=== PATIENT | female | born 1940 | race Caucasian/White ===

== ENCOUNTER 2024-07-07 10:05 | Observation (INO) ==
[2024-07-07 11:32] LABS: Appearance Urine Clear (Clear); Bacteria Urine Automated None Seen (None Seen); Bilirubin Urine Negative (Negative); Blood Urine Negative (Negative); Cast Urine Automated 0-2 /lpf (0-2); Color Urine Yellow; Glucose Urine UA Negative (Negative); Ketones Urine Negative (Negative); Leukocyte Esterase Urine 2+ (Negative); Nitrite Urine Negative (Negative); Protein Urine Negative (Negative); RBC Urine Automated 0-2 /hpf (0-2); Urobilinogen Urine Negative (Negative)
[2024-07-07 11:34] LABS: Basophils # (auto) 0.03 K/uL (0.00-0.20); Basophils % (auto) 0.4 %; Eosinophils # (auto) 0.15 K/uL (0.00-0.50); Eosinophils % (auto) 2.2 %; Hematocrit (blood only) 37.8 % (37.0-47.0); Hemoglobin 12.5 g/dl (12.0-16.0); Immature Granulocytes # (auto) 0.02 K/uL (0.01-0.20); Immature Granulocytes % (auto) 0.3 %; Lymphocytes # (auto) 0.89 K/uL (1.20-3.40); Lymphocytes % (auto) 13.1 %; Mean Corpuscular Hemoglobin 29.6 pg (25.0-34.0); Mean Corpuscular Hgb Conc 33.1 g/dL (32.0-36.0); Mean Corpuscular Volume 89.6 fL (80.0-100.0); Mean Platelet Volume 9.9 fL (9.4-12.4); Monocytes # (auto) 0.55 K/uL (0.11-0.59); Monocytes % (auto) 8.1 %; Neutrophils # (auto) 5.15 K/uL (1.40-6.50); Neutrophils % (auto) 75.9 %; Platelet Count 148 K/uL (130-400); RDW Coefficient of Variation 13.9 % (11.5-14.5); RDW Standard Deviation 45.2 fL (36.4-46.3); Red Blood Count 4.22 M/uL (4.20-5.40); White Blood Count 6.79 K/ul (4.8-10.8)
[2024-07-07 11:49] LABS: Alanine Aminotransferase 11 U/L (7-52); Albumin Globulin Ratio 1.4 (0.9-2); Alkaline Phosphatase 81 U/L (34-104); Anion Gap 6 (3-11); Aspartate Aminotransferase 19 U/L (13-39); BUN Creatinine Ratio 18.6 (10-20); Bilirubin,Total 1.1 mg/dl (0.2-1.0); Blood Urea Nitrogen 18 mg/dl (6-23); Calcium 9.5 mg/dl (8.6-10.3); Carbon Dioxide 34 mmol/L (21-32); Chloride 99 mmol/L (98-107); Globulin 2.9 gm/dl (2.5-4.0); Glucose 100 mg/dl (70-99(Fasting)); Potassium 4.2 mmol/L (3.5-5.1); Sodium 139 mmol/L (136-145); Total Protein 6.9 gm/dl (6.0-8.3)
[2024-07-07] MEDS: ACETAMINOPHEN 1,000 MG/100 ML VIAL IV STA (12:00)
--- NOTE | 2024-07-07 13:04 | Emergency Department Note ---
Impression & Plan Back pain, Shingles ED Provider Note NAME: BRANDEN YADAV AGE: 83 SEX: F : 1940 ARRIVES VIA: Ambulance INFORMANT: Patient, the patient's family members ED PROVIDER(S): Gonzales Knox DO CHIEF COMPLAINT: Back pain HPI: The patient is an 83-year-old female who presented to the emergency department for evaluation of back pain. The patient notes back pain that began early this morning. She denies having any trauma. She states the pain does go down the left leg. It is worse with ambulation as well as movement. Patient denies having any fever. She denies having any chest pain. She arrived via ambulance and was taken to triage. ROS: See above HPI for pertinent positives & negatives. A total of 10 systems reviewed and were otherwise negative. PAST MEDICAL HISTORY: See Below PAST SURGICAL HISTORY: See Below FAMILY HISTORY: See Below SOCIAL HISTORY: See Below HOME MEDICATIONS: See Below ALLERGIES: See Below VITALS: See Below PHYSICAL EXAMINATION: GENERAL: Patient is awake alert in no acute distress patient is resting comfortably and showing no signs of anxiety EYES: The conjunctivae are clear. The pupils are round and reactive. EARS, NOSE, MOUTH AND THROAT: The nose is without any evidence of any deformity. NECK: The neck is nontender and supple. RESPIRATORY: Normal respiratory effort is noted there is no evidence of wheezing rhonchi or rales CARDIOVASCULAR: Irregular heart sounds were noted to auscultation. There is no definite murmur GASTROINTESTINAL: The abdomen is soft. Abdomen is nontender. BACK: Midline tenderness was noted in the upper lumbar spine. There is no step- off. Range of motion appears intact but painful. MUSCULOSKELETAL/EXTREMITIES: There is no evidence of gross deformity full range of motion is noted in the hips and shoulders. SKIN: There is no obvious evidence of any rash. There are no petechiae, pallor or cyanosis noted. NEUROLOGIC: Patient is awake alert and oriented x3. The patient was able to hold each leg off the bed for greater than 5 seconds. MEDICAL DECISION MAKING: The patient is an 83-year-old female who presented to the emergency department for an evaluation of back pain. The patient had a rather acute onset of back pain over the last 24 hours. She was having severe pain and 911 was called. The patient arrived via ambulance. I discussed the patient's laboratory and radiographic studies with her. She was treated with pain medication in the emergency department. No obvious cause for the patient's pain was found on CT of the abdomen pelvis or CT of the chest. Because of her ongoing pain I discussed her condition with the on-call [facility] hospitalist. They have agreed to evaluate the patient in the emergency department for further management and disposition Triage Nursing notes reviewed. Prior medical records reviewed Vital Signs: reviewed and remarkable for no significant abnormalities Differential diagnosis: Musculoskeletal, disc herniation, fracture, metastatic disease, cord compression, discitis, sciatica, cauda equina, infection, aortic disease, renal colic, gastrointestinal, as well as other pathologies. ER treatment provided: See below Diagnostics interpreted by me: ECG: EKG was obtained in the emergency department. My interpretation is atrial fibrillation at 60 bpm. Left bundle-branch block pattern was noted. No previous tracings available Cardiac Monitoring: An order was placed for continuous cardiac monitoring. The monitor shows a rate of 66 bpm with atrial fibrillation. Laboratory studies: As stated above and show below. Imaging studies: See below. Radiographic imaging was reviewed by myself Consultation(s): I discussed this case with Dr. Smalls who is on-call for the [facility] hospitalist group. Past Med/Surg History Problem List (Updated 07/07/24 @ 19:44 by Gonzales Knox DO) Shingles (Acute) Back pain (Acute) Ambulatory dysfunction Acute thoracic back pain Right rotator cuff tendinitis Left trigger finger Right lower quadrant abdominal pain Achilles tendinitis, left leg Posterior tibial tendinitis Arthritis of knee, left Effusion, left knee Chondrocalcinosis Bilateral primary osteoarthritis of knee Rotator cuff syndrome of left shoulder S/P coronary artery stent placement History of aortic valve replacement TAVR procedure 04/13/2019 Lumbar stenosis with neurogenic claudication H/O transesophageal echocardiography (LELIA) for monitoring (Chronic) History of multiple strokes (Chronic) 04/29 and 05/31 History of loop recorder (Acute) 05/27/2018 H/O right heart catheterization (Chronic) not sure if right or left - thought both sides were looked at - 04/29 Lumbar facet joint syndrome (Chronic) History of coronary artery stent placement (Chronic) Hypertension (Chronic) Diabetes (Chronic) Social History Smoking Status: Never smoker Hx Alcohol Use: No Hx Substance Use: No Preferred Language: French Communication Ability: Effective Visual Impairment: No Limitations Hearing Ability: Normal 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 Beliefs That Will Affect Care: None marital status: Current Living Situation: Spouse current occupational status: retired Feels Safe at Home: Yes Allergies Allergies Allergy/AdvReac Type Severity Reaction Status Date / Time No Known Allergies Allergy Verified 07/07/24 17:56 Home Meds Home Medications Medication Instructions Recorded Confirmed multivitamin (Daily Multi-Vitamin 1 tab PO DAILY 01/31/18 07/07/24 tablet) temazepam 30 mg capsule (Restoril) 30 mg PO HS 01/31/18 07/07/24 rosuvastatin 10 mg tablet 10 mg PO HS 02/28/23 07/07/24 atenolol 50 mg tablet 50 mg PO BID 12/05/23 07/07/24 doxazosin 1 mg tablet 1 mg PO HS 12/05/23 07/07/24 rivaroxaban 20 mg tablet (Xarelto) 20 mg PO HS 12/05/23 07/07/24 furosemide 20 mg tablet 20 mg PO QAM 07/06/24 07/07/24 isosorbide mononitrate 30 mg 30 mg PO DAILY 07/06/24 07/07/24 tablet,extended release 24 hr losartan 100 mg tablet 100 mg PO DAILY 07/06/24 07/07/24 nystatin-triamcinolone 100,000 1 applic topical DAILY PRN 07/06/24 07/07/24 unit/gram-0.1 % topical ointment Irritation tramadol 50 mg tablet 50 mg PO BID PRN pain 07/07/24 07/07/24 Previous Rx's Medication Instructions Recorded gabapentin 300 mg capsule 300 mg PO TID #180 caps 01/23/24 Results & Data (ED) Vital Signs Vital Signs - 24 hr 07/07/24 10:30 07/07/24 13:03 07/07/24 13:28 Temperature 36.5 C Temperature Source Oral Pulse Rate 76 62 Pulse Rate [Apical] 81 Pulse Rhythm [Apical] Regular Pulse Strength [Apical] Normal Respiratory Rate 18 24 Respiratory Effort / Characteristics Non-Labored Non-Labored Spontaneous Respiratory Depth Normal Normal Respiratory Pattern Regular Regular Blood Pressure 160/90 H Blood Pressure [Right Arm] 154/103 H Blood Pressure Mean 113 Blood Pressure Mean [Right Arm] 120 Blood Pressure Position [Right Arm] Pulse Oximetry 96 96 Oxygen Delivery Method Room Air Room Air Sepsis Recent Fever Within 48 Hours No Sepsis New/Unexplained Change in Mental Status N/A Sepsis Action Taken by Nursing No Action Required 07/07/24 13:43 07/07/24 15:00 07/07/24 16:00 Temperature Temperature Source Pulse Rate Pulse Rate [Apical] 70 69 62 Pulse Rhythm [Apical] Regular Pulse Strength [Apical] Normal Respiratory Rate 20 17 18 Respiratory Effort / Characteristics Non-Labored Spontaneous Non-Labored Spontaneous Respiratory Depth Normal Normal Respiratory Pattern Regular Regular Blood Pressure Blood Pressure [Right Arm] 120/74 137/79 147/76 H Blood Pressure Mean Blood Pressure Mean [Right Arm] 89 98 99 Blood Pressure Position [Right Arm] Lying Semi-fowlers Semi-fowlers Pulse Oximetry 96 98 96 Oxygen Delivery Method Room Air Room Air Sepsis Recent Fever Within 48 Hours Sepsis New/Unexplained Change in Mental Status Sepsis Action Taken by Nursing 07/07/24 17:05 07/07/24 17:30 07/07/24 18:23 Temperature Temperature Source Pulse Rate 64 Pulse Rate [Apical] 62 66 Pulse Rhythm [Apical] Pulse Strength [Apical] Respiratory Rate 18 19 Respiratory Effort / Characteristics Respiratory Depth Respiratory Pattern Blood Pressure Blood Pressure [Right Arm] 146/85 H 120/84 Blood Pressure Mean Blood Pressure Mean [Right Arm] 105 96 Blood Pressure Position [Right Arm] Semi-fowlers Pulse Oximetry 98 92 Oxygen Delivery Method Room Air Room Air Sepsis Recent Fever Within 48 Hours Sepsis New/Unexplained Change in Mental Status Sepsis Action Taken by Half-Way Medications Current Medication List: was personally reviewed by me Laboratory Data Attestation: I reviewed the patient's lab results. 07/07/24 11:12 07/07/24 11:12 Lab Results 07/07/24 07/07/24 07/07/24 Range/Units 11:12 11:13 14:21 WBC 6.79 (4.8-10.8) K/ul RBC 4.22 (4.20-5.40) M/uL Hgb 12.5 (12.0-16.0) g/dl Hct 37.8 (37.0-47.0) % MCV 89.6 (80.0-100.0) fL MCH 29.6 (25.0-34.0) pg MCHC 33.1 (32.0-36.0) g/dL RDW Std Deviation 45.2 (36.4-46.3) fL RDW Coeff of [place] 13.9 (11.5-14.5) % Plt Count 148 (130-400) K/uL MPV 9.9 (9.4-12.4) fL Immature Gran % (Auto) 0.3 % Neut % (Auto) 75.9 % Lymph % (Auto) 13.1 % [place] % (Auto) 8.1 % Eos % (Auto) 2.2 % Baso % (Auto) 0.4 % Neut # (Auto) 5.15 (1.40-6.50) K/uL Lymph # (Auto) 0.89 L (1.20-3.40) K/uL [place] # (Auto) 0.55 (0.11-0.59) K/uL Eos # (Auto) 0.15 (0.00-0.50) K/uL Baso # (Auto) 0.03 (0.00-0.20) K/uL Immature Gran # (Auto) 0.02 (0.01-0.20) K/uL Sodium 139 (136-145) mmol/L Potassium 4.2 (3.5-5.1) mmol/L Chloride 99 (98-107) mmol/L Carbon Dioxide 34 H (21-32) mmol/L Anion Gap 6 (3-11) BUN 18 (6-23) mg/dl Creatinine 0.97 (0.6-1.2) mg/dl Est Cr Clr Drug Dosing Not Reportable eGFR 58.34 BUN/Creatinine Ratio 18.6 (10-20) Glucose 100 H (70-99(Fasting)) mg/dl Calcium 9.5 (8.6-10.3) mg/dl Total Bilirubin 1.1 H (0.2-1.0) mg/dl AST 19 (13-39) U/L ALT 11 (7-52) U/L Alkaline Phosphatase 81 (34-104) U/L Troponin I High Sens 9.7 (0-14) pg/ml Total Protein 6.9 (6.0-8.3) gm/dl Albumin 4.0 (3.4-5.0) gm/dl Globulin 2.9 (2.5-4.0) gm/dl Albumin/Globulin Ratio 1.4 (0.9-2) Urine Color Yellow Urine Appearance Clear (Clear) Urine pH 6.0 (4.5-7.5) Ur Specific [place] 1.010 (1.000-1.030) Urine Protein Negative (Negative) Urine Glucose (UA) Negative (Negative) Urine Ketones Negative (Negative) Urine Blood Negative (Negative) Urine Nitrite Negative (Negative) Urine Bilirubin Negative (Negative) Urine Urobilinogen Negative (Negative) Ur Leukocyte Esterase 2+ H (Negative) Urine WBC (Auto) 6-10 H (0-5) /hpf Urine RBC (Auto) 0-2 (0-2) /hpf U Hyaline Cast (Auto) 0-2 (0-2) /lpf U Epithel Cells (Auto) 3-5 H (0-2) /hpf Urine Bacteria (Auto) None Seen (None Seen) Administered Medications Discontinued Medications Hydromorphone HCl (Hydromorphone Inj 0.5 Mg/0.5 Ml Syr) 0.5 mg IV NOW STA Stop: 07/07/24 14:03 Last Admin: 07/07/24 14:05 Dose: 0.5 mg Documented By: SRL Acetaminophen (Ofirmev) 1,000 mg in 100 mls @ 400 mls/hr IV NOW STA Stop: 07/07/24 12:05 Last Infusion: 07/07/24 12:24 Dose: Infused Documented By: NRPamella Admin: 07/07/24 12:00 Dose: 400 mls/hr Documented By: ALIREZA Ioversol (Optiray 320 100ml) 93 ml IV ONCE ONE Stop: 07/07/24 13:23 Last Admin: 07/07/24 13:22 Dose: 93 ml Documented By: ZULMA Ioversol (Optiray 320 125ml) 119 ml IV ONCE ONE Stop: 07/07/24 15:39 Last Admin: 07/07/24 15:39 Dose: 119 ml Documented By: SHAHRIAR Lidocaine (Lidocaine 5% 1 Patch) 1 patch TD NOW STA Stop: 07/07/24 17:29 Last Admin: 07/07/24 18:19 Dose: 1 patch Documented By: OTILIO Morphine Sulfate (Morphine Sulfate 4 Mg/Ml 1 Ml Carp\Vial) 4 mg IV NOW STA Stop: 07/07/24 12:59 Last Admin: 07/07/24 13:10 Dose: 4 mg Documented By: RAY Ondansetron HCl (Ondansetron Inj 2 Mg/Ml 2 Ml Vial) 4 mg IV NOW STA Stop: 07/07/24 12:59 Last Admin: 07/07/24 13:10 Dose: 4 mg Documented By: RAY Imaging Data Attestation: I personally reviewed and interpreted this imaging study as follows: My Impression: CT of the abdomen and pelvis was obtained in the emergency department. My interpretation is no free air or signs of bowel obstruction, final report below. CT of the chest was obtained in the emergency department. My interpretation is no definite infiltrate or free air, final report below. Radiologist's Impression: Abdomen/Pelvis CT 07/07/24 12:[address] WITH IV CONTRAST CT DOSE: 1787.29 mGy.cm HISTORY: Acute left-sided abdominal pain left sided pain TECHNIQUE: Multiaxial CT images of the abdomen and pelvis were performed following the IV administration of 93 cc of Optiray, A dose lowering technique was utilized adhering to the principles of ALARA. COMPARISON STUDY: 02/20/2022 FINDINGS: Cardiomegaly with unchanged small pericardial effusion. Aortic endograft. Coronary artery calcifications. Clear lung bases. No pneumatosis or pneumoperitoneum. Unremarkable spleen, pancreas, gallbladder, adrenal glands and liver. Cortical thinning of the kidneys with bilateral perinephric stranding. 2.7 cm cyst of the superior pole right kidney. Unremarkable urinary bladder. Heterogeneous uterus with calcified fibroid. Atherosclerosis of the aorta without aneurysm. No lymphadenopathy. Small hiatal hernia. 4.8 cm duodenal diverticulum. Pelvic floor relaxation. Colonic diverticulosis without acute diverticulitis. Nonvisualization of the appendix. Tiny fat filled umbilical hernia. Unremarkable soft tissues. L1 vertebral body hemangioma. No acute fracture. IMPRESSION: 1. No acute intra-abdominal or intrapelvic abnormality. 2. Colonic diverticulosis without acute diverticulitis. 3. Cardiomegaly with unchanged small pericardial effusion. 4. Small hiatal hernia. ACT 112: Negative or not required by law. The above report was generated using voice recognition software. It may contain grammatical, syntax or spelling errors. Electronically signed by: Pavan Lopez M.D. 07/07/2024 1:57 PM Chest X-Ray 07/07/24 12:59 XR chest 1V portable CLINICAL HISTORY: edema COMPARISON STUDY: None FINDINGS: There is moderate cardiomegaly without pulmonary vascular congestion. No effusion, consolidation, or pneumothorax. IMPRESSION: No acute findings. ACT 112: Negative or not required by law. Electronically signed by: Brian Evans M.D. 07/07/2024 1:28 PM Chest CTA 07/07/24 14:38 CT angio chest PE protocol CT DOSE: 887.57 mGy.cm HISTORY: PE. TECHNIQUE: Multiple CTA images of the chest were obtained after the intravenous administration of 120 ml Optiray. Coronal and sagittal MIPS were obtained from the axial data set and were submitted for review. All measurements were obtained according to NASCET criteria. A dose lowering technique was utilized adhering to the principles of ALARA. COMPARISON STUDY: None FINDINGS: There is no pulmonary consolidation, pleural effusion, or pneumothorax. No significant pulmonary nodule. No enlarged adenopathy. There is a trace pericardial effusion. There is prior aortic valve repair. No pulmonary embolism. There are diffuse thoracic spine degenerative changes. IMPRESSION: No pulmonary embolism seen. ACT 112: Negative or not required by law. The above report was generated using voice recognition software. It may contain grammatical, syntax or spelling errors. Electronically signed by: Brian Evans M.D. 07/07/2024 3:[address] 07/07/24 17:30 Clinical history: Back pain Technique: Axial computed tomography images were obtained of the thoracic spine after the administration of intravenous contrast. Sagittal and coronal reconstructions were obtained Comparison is made to the MRI of the lumbar spine dated 06/20/2023 Findings: There is multilevel Schmorl's node formation. There are mild compression fractures of the T5, T6, T7, T8, and T9 vertebral bodies, with loss of up to 15% of the vertebral body height. There is no retropulsion of bone into the spinal canal. No definite acute fracture is identified. There is mild scoliosis. No listhesis is seen. Again seen is a hemangioma in the L1 vertebral body. There is no definite sign of osteomyelitis At T1-2 and T2-3, no pathology is seen At T3-4 and T4-5, there are mild anterior disc bulges without spinal stenosis. The neural foramen are patent At T5-6, there is mild spinal stenosis due to a disc bulge and a right paracentral disc herniation. The neural foramen appear patent At T6-7, there is a mild disc bulge without spinal stenosis. The neural foramen appear patent At T7-8, there is mild spinal stenosis due to a disc bulge and a central disc protrusion. The neural foramen appear patent At T8-9, there is a disc bulge without spinal stenosis. The neural foramen appear patent At T9-10, T10-11, and T11-12, there are predominantly anterior disc bulges without spinal stenosis. The neural foramen appear patent There is a 3 mm right upper lobe nodule. There is a small hiatal hernia Impression: 1. Mild compression fractures of T5-T9, likely old but of indeterminate age 2. Mild spinal stenosis at T5-6 and T7-8 3. Small right upper lobe nodule, likely benign but indeterminate in nature. A follow-up chest CT could be obtained in 6 months 4. Small hiatal hernia Electronically signed by Tian Valadez 07-07-2024 6:34 PM Discharge Plan Visit Data Chief Complaint: Back Injury/Pain Stated Complaint: BACK PAIN ED Provider: Gonzales Knox Discharge Problem: Back pain, Shingles Patient Disposition: Being Evaluated by Hospitalist Forms Stand Alone Forms: My [facility] Prescriptions Prescriptions: No Action multivitamin [Daily Multi-Vitamin] tablet 1 tab PO DAILY Rx Instructions: Unable to verify OTC meds at this date/time. temazepam [Restoril] 30 mg capsule 30 mg PO HS rosuvastatin 10 mg tablet 10 mg PO HS atenolol 50 mg tablet 50 mg PO BID doxazosin 1 mg tablet 1 mg PO HS Xarelto 20 mg tablet 20 mg PO HS isosorbide mononitrate 30 mg tablet extended release 24 hr 30 mg PO DAILY gabapentin 300 mg capsule 300 mg PO TID Qty: 180 3RF furosemide 20 mg tablet 20 mg PO QAM nystatin-triamcinolone 100,000-0.1 unit/gram-% ointment 1 applic topical DAILY PRN (Reason: Irritation) losartan 100 mg tablet 100 mg PO DAILY tramadol 50 mg tablet 50 mg PO BID PRN (Reason: pain) Referrals Referrals: Nuris Small MD [Primary Care Provider] - Discharge Problem: Back pain Qualifiers: Back pain location: thoracic back pain Chronicity: acute Back pain laterality: midline Qualified Code(s): M54.6 - Pain in thoracic spine
[2024-07-07] MEDS: MoRPHine SULFATE 4 MG/ML 1 ML CARP\\VIAL IV STA (13:10)
[2024-07-07] MEDS: ONDANSETRON INJ 2 MG/ML 2 ML VIAL IV STA (13:10)
[2024-07-07] MEDS: OPTIRAY 320 100ml IV ONE (13:22)
--- NOTE | 2024-07-07 13:29 | XRay Report ---
XR chest 1V portable CLINICAL HISTORY: edema COMPARISON STUDY: None FINDINGS: There is moderate cardiomegaly without pulmonary vascular congestion. No effusion, consolid ation, or pneumothorax. IMPRESSION: No acute findings. ACT 112: Negative or not required by law. Electronically signed by: Brian Evans M.D. 07/07/2024 1:28 PM
--- NOTE | 2024-07-07 13:59 | CT Scan Report ---
ABDOMEN AND PELVIS CT WITH IV CONTRAST CT DOSE: 1787.29 mGy.cm HISTORY: Acute left-sided abdominal pain left sided pain TECHNIQUE: Multiaxial CT images of the abdomen and pelvis were performed following the IV administrat ion of 93 cc of Optiray, A dose lowering technique was utilized adhering to the principles of ALARA. COMPARISON STUDY: 02/20/2022 FINDINGS: Cardiomegaly with unchanged small pericardial effusion. Aortic endograft. Coronary artery c alcifications. Clear lung bases. No pneumatosis or pneumoperitoneum. Unremarkable spleen, pancreas, gallbladder, adrenal glands and liver. Cortical thinning of the kidney s with bilateral perinephric stranding. 2.7 cm cyst of the superior pole right kidney. Unremarkable u rinary bladder. Heterogeneous uterus with calcified fibroid. Atherosclerosis of the aorta without ane urysm. No lymphadenopathy. Small hiatal hernia. 4.8 cm duodenal diverticulum. Pelvic floor relaxation. Colonic diverticulosis wi thout acute diverticulitis. Nonvisualization of the appendix. Tiny fat filled umbilical hernia. Unrem arkable soft tissues. L1 vertebral body hemangioma. No acute fracture. IMPRESSION: 1. No acute intra-abdominal or intrapelvic abnormality. 2. Colonic diverticulosis without acute diverticulitis. 3. Cardiomegaly with unchanged small pericardial effusion. 4. Small hiatal hernia. ACT 112: Negative or not required by law. The above report was generated using voice recognition software. It may contain grammatical, syntax o r spelling errors. Electronically signed by: Pavan Lopez M.D. 07/07/2024 1:57 PM
[2024-07-07] MEDS: HYDROmorphone INJ 0.5 MG/0.5 ML SYR IV STA (14:05)
[2024-07-07] MEDS: OPTIRAY 320 125ml IV ONE (15:39)
--- NOTE | 2024-07-07 15:47 | CT Scan Report ---
CT angio chest PE protocol CT DOSE: 887.57 mGy.cm HISTORY: PE. TECHNIQUE: Multiple CTA images of the chest were obtained after the intravenous administration of 120 ml Optiray. Coronal and sagittal MIPS were obtained from the axial data set and were submitted for review. All measurements were obtained according to NASCET criteria. A dose lowering technique was u tilized adhering to the principles of ALARA. COMPARISON STUDY: None FINDINGS: There is no pulmonary consolidation, pleural effusion, or pneumothorax. No significant pulm onary nodule. No enlarged adenopathy. There is a trace pericardial effusion. There is prior aortic va lve repair. No pulmonary embolism. There are diffuse thoracic spine degenerative changes. IMPRESSION: No pulmonary embolism seen. ACT 112: Negative or not required by law. The above report was generated using voice recognition software. It may contain grammatical, syntax o r spelling errors. Electronically signed by: Brian Evans M.D. 07/07/2024 3:44 PM
--- NOTE | 2024-07-07 16:16 | Electrocardiogram Report ---
Test Reason : Blood Pressure : */* mmHG Vent. Rate : 60 BPM Atrial Rate : * BPM P-R Int : * ms QRS Dur : 126 ms QT Int : 426 ms P-R-T Axes : * -11 113 degrees QTcB Int : 426 ms Atrial fibrillation Left bundle branch block Abnormal ECG No previous ECGs available Confirmed by Gonzales Crouch ([id number]) on 07/07/2024 4:15:46 PM Referred By: Confirmed By: Gonzales Crouch
--- NOTE | 2024-07-07 16:41 | History & Physical Report ---
Date of Service July 07, 2024 Assessment & Plan (1) Acute thoracic back pain: (2) Ambulatory dysfunction: Plan Shannon is an 83-year-old female with PMH of diabetes, HTN, CAD s/p stent placement, aortic valve replacement, spinal stenosis, and multiple strokes. She presented on 07/07 for left middle back pain that began at 7:30 AM. Patient reports she felt fine when she woke up, but then developed acute onset of pain on her left upper and middle spine. She rates the pain 10/10 at worst, and characterizes it as a sharp, stabbing pain that is worse with deep breaths. She reports it is 8/10 after receiving Dilaudid in the ED. Patient does have a history of lumbar spinal stenosis, but reports this feels different as it is much higher in her spine. No recent injuries to the head, neck, or back. #Back pain No fevers; no leukocytosis; no saddle anesthesia or loss of urinary continence Chest CTA and A/P CT on arrival without acute finding; no PE Thoracic CT ordered, pending Leading DDx on admission includes MSK, and acute on chronic neuropathic pain (among other etiologies) Patient does have shingles; however, it is on her right chest wall Lidocaine patch daily Heat application PRN Continue gabapentin and tramadol PRN IV Dilaudid as needed for breakthrough pain Continuous pulse oximetry #Ambulatory dysfunction PT/OT evaluations appreciated Fall precautions #Atrial fibrillation Rate controlled Continue atenolol, Xarelto Disposition: Obs - admit to [facility] Full code Regular diet VTE PPx: On Eliquis History of Present Illness Chief Complaint: Back pain Primary Care Provider: Nuris Small MD Shannno is an 83-year-old female with PMH of diabetes, HTN, CAD s/p stent placement, aortic valve replacement, spinal stenosis, and multiple strokes. She presented on 07/07 for left middle back pain that began at 7:30 AM. Patient reports she felt fine when she woke up, but then developed acute onset of pain on her left upper and middle spine. She rates the pain 10/10 at worst, and characterizes it as a sharp, stabbing pain that is worse with deep breaths. She reports it is 8/10 after receiving Dilaudid in the ED. Patient does have a history of lumbar spinal stenosis, but reports this feels different as it is much higher in her spine. No recent injuries to the head, neck, or back. No abnormal activities. Patient takes gabapentin and tramadol for her back pain, and reports that her tramadol dosage was increased yesterday without relief. The pain has gradually gotten worse throughout the day. No saddle anesthesia or loss of urinary continence. Patient does follow-up with the pain clinic and has had multiple injections and ablations in her lower spine. Additionally, she does have a history of shingles on her right side, and was diagnosed with it 1 week ago. She is not currently vaccinated against shingles, but reports she has had it 3-4 times in the past. It should be noted that there was 1 episode this past week where she woke up in the middle the night with pain in her shins bilaterally. Patient took her regular morning medicine today; no recent changes besides increasing her tramadol dosage. Patient ambulates with a cane and walker at baseline. No history of pancreatitis. No history of heart failure to her knowledge, but she has been told that she has a "leaky" aortic valve in the past, and she has been taking Lasix daily for fluid buildup in her legs. Additionally, patient does have a history of strokes, but denies any strokelike symptoms such as slurred speech, facial droop, unilateral deficits. Patient is hypertensive at 147/76 at time admission; vitals otherwise stable. ED course: Morphine sulfate 4 mg IV Zofran 4 mg IV Hydromorphone 0.5 mg IV Acetaminophen 1000 mg IV ROS: Patient endorses feeling, off-balance, headaches, chest heaviness, YANEZ, and occasional abdominal cramping. Patient denies fever, chills, night-sweats, dizziness, lightheadedness, photophobia, neck pain/stiffness, SOB at rest, orthopnea, N/V/D, saddle anesthesia, N/T in the legs, or loss of bowel/bladder. Allergies Allergy/AdvReac Type Severity Reaction Status Date / Time No Known Allergies Allergy Verified 07/07/24 17:56 Home Medications Medication Instructions Recorded Confirmed Type multivitamin (Daily Multi-Vitamin 1 tab PO DAILY 01/31/18 07/07/24 History tablet) temazepam 30 mg capsule (Restoril) 30 mg PO HS 01/31/18 07/07/24 History rosuvastatin 10 mg tablet 10 mg PO HS 02/28/23 07/07/24 History atenolol 50 mg tablet 50 mg PO BID 12/05/23 07/07/24 History doxazosin 1 mg tablet 1 mg PO HS 12/05/23 07/07/24 History rivaroxaban 20 mg tablet (Xarelto) 20 mg PO HS 12/05/23 07/07/24 History gabapentin 300 mg capsule 300 mg PO TID #180 caps 01/23/24 07/07/24 Rx furosemide 20 mg tablet 20 mg PO QAM 07/06/24 07/07/24 History isosorbide mononitrate 30 mg 30 mg PO DAILY 07/06/24 07/07/24 History tablet,extended release 24 hr losartan 100 mg tablet 100 mg PO DAILY 07/06/24 07/07/24 History nystatin-triamcinolone 100,000 1 applic topical DAILY PRN 07/06/24 07/07/24 History unit/gram-0.1 % topical ointment Irritation tramadol 50 mg tablet 50 mg PO BID PRN pain 07/07/24 07/07/24 History Past Med/Surg History Problem List (Updated 07/07/24 @ 17:42 by ANNE HernandezC) Ambulatory dysfunction Acute thoracic back pain Right rotator cuff tendinitis Left trigger finger Right lower quadrant abdominal pain Achilles tendinitis, left leg Posterior tibial tendinitis Arthritis of knee, left Effusion, left knee Chondrocalcinosis Bilateral primary osteoarthritis of knee Rotator cuff syndrome of left shoulder S/P coronary artery stent placement History of aortic valve replacement TAVR procedure 04/13/2019 Lumbar stenosis with neurogenic claudication H/O transesophageal echocardiography (LELIA) for monitoring (Chronic) History of multiple strokes (Chronic) 04/29 and 05/31 History of loop recorder (Acute) 05/27/2018 H/O right heart catheterization (Chronic) not sure if right or left - thought both sides were looked at - 04/29 Lumbar facet joint syndrome (Chronic) History of coronary artery stent placement (Chronic) Hypertension (Chronic) Diabetes (Chronic) Social History Smoking Status: Never smoker Hx Alcohol Use: No Hx Substance Use: No Preferred Language: Angolan Communication Ability: Effective Visual Impairment: No Limitations Hearing Ability: Normal Director Of Home Economics Required: No Beliefs That Will Affect Care: None marital status: Current Living Situation: Spouse current occupational status: retired Feels Safe at Home: Yes Review of Systems Review of Systems: See HPI above Physical Exam Physical Exam: General: no acute distress; non-toxic appearing; well-nourished; cooperative; SpO2 90% on RA HEENT: normocephalic, atraumatic; no scleral icterus; PERRLA w/ EOMs intact; vision and hearing grossly intact Neck: supple; no lymphadenopathy; trachea midline; patient demonstrates ability to shrug shoulders against resistance, but this does elicit some pain on the left side; patient rotates neck bilaterally without unilateral deficits Skin: warm, dry without signs of tenting; no cyanosis; vesicular rash noted across the right chest wall CV: chest wall NTP; RRR; S1/S2 normal; no murmurs/rubs/gallops; pulses intact and symmetric at radial, DP, and PT Lungs: no acute respiratory distress; symmetrical chest wall expansion; clear breath sounds across all lung sena w/o adventitious sounds; no wheezing ABD: Soft, NTP; BS present; no rebound/guarding; no distention Spine: Upper spine NTP; left thoracic spine is tender to palpation; no rashes or vesicles appreciated MSK: no tics or fasciculations; +2 pitting edema noted in the LEs b/l, nonerythematous; 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; positive leg lift bilaterally Neuro: A&Ox3; normal mood and affect; fluent speech; no focal deficits; sensation intact and symmetric in lower extremities bilaterally Results & Data Results & Data Vital Signs (Past 12 Hours) Vital Signs Temp Pulse Pulse Resp BP BP Pulse Ox 07/07/24 16:00 62 18 147/76 H 96 07/07/24 15:00 69 17 137/79 98 07/07/24 13:43 70 20 120/74 96 07/07/24 13:28 81 24 154/103 H 96 07/07/24 13:03 62 07/07/24 10:30 36.5 C 76 18 160/90 H 96 O2 Del Method 07/07/24 16:00 07/07/24 15:00 Room Air 07/07/24 13:43 Room Air 07/07/24 13:28 Room Air 07/07/24 13:03 07/07/24 10:30 Room Air Laboratory Results Abnormal lab results 07/07/24 07/07/24 Range/Units 11:12 11:13 Lymph # (Auto) 0.89 L (1.20-3.40) K/uL Carbon Dioxide 34 H (21-32) mmol/L Glucose 100 H (70-99(Fasting)) mg/dl Total Bilirubin 1.1 H (0.2-1.0) mg/dl Ur Leukocyte Esterase 2+ H (Negative) Urine WBC (Auto) 6-10 H (0-5) /hpf U Epithel Cells (Auto) 3-5 H (0-2) /hpf Diagnostic Findings Abdomen/Pelvis CT 07/07/24 12:[address] WITH IV CONTRAST CT DOSE: 1787.29 mGy.cm HISTORY: Acute left-sided abdominal pain left sided pain TECHNIQUE: Multiaxial CT images of the abdomen and pelvis were performed following the IV administration of 93 cc of Optiray, A dose lowering technique was utilized adhering to the principles of ALARA. COMPARISON STUDY: 02/20/2022 FINDINGS: Cardiomegaly with unchanged small pericardial effusion. Aortic endograft. Coronary artery calcifications. Clear lung bases. No pneumatosis or pneumoperitoneum. Unremarkable spleen, pancreas, gallbladder, adrenal glands and liver. Cortical thinning of the kidneys with bilateral perinephric stranding. 2.7 cm cyst of the superior pole right kidney. Unremarkable urinary bladder. Heterogeneous uterus with calcified fibroid. Atherosclerosis of the aorta without aneurysm. No lymphadenopathy. Small hiatal hernia. 4.8 cm duodenal diverticulum. Pelvic floor relaxation. Colonic diverticulosis without acute diverticulitis. Nonvisualization of the appendix. Tiny fat filled umbilical hernia. Unremarkable soft tissues. L1 vertebral body hemangioma. No acute fracture. IMPRESSION: 1. No acute intra-abdominal or intrapelvic abnormality. 2. Colonic diverticulosis without acute diverticulitis. 3. Cardiomegaly with unchanged small pericardial effusion. 4. Small hiatal hernia. ACT 112: Negative or not required by law. The above report was generated using voice recognition software. It may contain grammatical, syntax or spelling errors. Electronically signed by: Pavan Lopez M.D. 07/07/2024 1:57 PM Chest X-Ray 07/07/24 12:59 XR chest 1V portable CLINICAL HISTORY: edema COMPARISON STUDY: None FINDINGS: There is moderate cardiomegaly without pulmonary vascular congestion. No effusion, consolidation, or pneumothorax. IMPRESSION: No acute findings. ACT 112: Negative or not required by law. Electronically signed by: Brian Evans M.D. 07/07/2024 1:28 PM Chest CTA 07/07/24 14:38 CT angio chest PE protocol CT DOSE: 887.57 mGy.cm HISTORY: PE. TECHNIQUE: Multiple CTA images of the chest were obtained after the intravenous administration of 120 ml Optiray. Coronal and sagittal MIPS were obtained from the axial data set and were submitted for review. All measurements were obtained according to NASCET criteria. A dose lowering technique was utilized adhering to the principles of ALARA. COMPARISON STUDY: None FINDINGS: There is no pulmonary consolidation, pleural effusion, or pneumothorax. No significant pulmonary nodule. No enlarged adenopathy. There is a trace pericardial effusion. There is prior aortic valve repair. No pulmonary embolism. There are diffuse thoracic spine degenerative changes. IMPRESSION: No pulmonary embolism seen. ACT 112: Negative or not required by law. The above report was generated using voice recognition software. It may contain grammatical, syntax or spelling errors. Electronically signed by: Brian Evans M.D. 07/07/2024 3:44 PM ECG Additional Comments: ECG revealed atrial fibrillation at 60 bpm; QTc 426; no prior EKGs for comparison Code Status & VTE Plan Code Status Full code VTE Prophylaxis Plan VTE Prophylaxis will be ordered: Yes Supervising Physician Co-Signing Physician Notes I have personally seen, evaluated and examined the patient. I have also personally discussed the management of the patient with the resident physician/LEATHA and I agree with the exam findings documented in the history and physical examination and the documented assessment and plan unless otherwise stated below. Brief Exam: In general pleasant 83-year-old female is alert oriented x 3 at the time of my exam accompanied by her and her daughter at the time of my examination. HEENT: Normocephalic atraumatic. Heart: Regular rate and rhythm. Lungs: Clear. Abdomen: Soft nontender positive bowel sounds. Extremities: Intact no clubbing cyanosis or edema. Spine-the patient does have reproducible pain with palpation in the mid lumbar regions approximately T5-T8. Worse just left of midline. Assessment/plan: As discussed above. CT of the thoracic spine was performed and is grossly abnormal. Compression fractions age-indeterminate from T5 -T9 identified. With spinal stenosis with disc bulge at the level of T5/T6. We have ordered an MRI of the thoracic spine. Of also obtained orthospine consult with Dr. Olea. We personally discussed with him and he will see the patient in the morning. Additional assessments: 1. Compression fractures age-indeterminate T5-T9. 2. Spinal stenosis levels T5-T6 with bulging disc. PG Care Time/CCT Total # of Minutes Spent Total Time Spent with Patient: Total time spent is greater than 50% in coordination of care (as documented) at patient's floor/unit and/or counseling patient: Coding [place] [address] INT INP/OBS CARE 3/75MIN Patient Type Established Medical Decision Making High Complexity Diagnoses Acute thoracic back pain M54.6 Ambulatory dysfunction R26.2
[2024-07-07] MEDS: LIDOCAINE 5% 1 PATCH TD STA (18:19)
--- NOTE | 2024-07-07 18:34 | CT Scan Report ---
Clinical history: Back pain Technique: Axial computed tomography images were obtained of the thoracic spine after the administration of intravenous contrast. Sagittal and coronal reconstructions were obtained Comparison is made to the MRI of the lumbar spine dated 06/20/2023 Findings: There is multilevel Schmorl's node formation. There are mild compression fractures of the T5, T6, T7, T8, and T9 vertebral bodies, with loss of up to 15% of the vertebral body height. There is no retropulsion of bone into the spinal canal. No definite acute fracture is identified. There is mild scoliosis. No listhesis is seen. Again seen is a hemangioma in the L1 vertebral body. There is no definite sign of osteomyelitis At T1-2 and T2-3, no pathology is seen At T3-4 and T4-5, there are mild anterior disc bulges without spinal stenosis. The neural foramen are patent At T5-6, there is mild spinal stenosis due to a disc bulge and a right paracentral disc herniation. The neural foramen appear patent At T6-7, there is a mild disc bulge without spinal stenosis. The neural foramen appear patent At T7-8, there is mild spinal stenosis due to a disc bulge and a central disc protrusion. The neural foramen appear patent At T8-9, there is a disc bulge without spinal stenosis. The neural foramen appear patent At T9-10, T10-11, and T11-12, there are predominantly anterior disc bulges without spinal stenosis. The neural foramen appear patent There is a 3 mm right upper lobe nodule. There is a small hiatal hernia Impression: 1. Mild compression fractures of T5-T9, likely old but of indeterminate age 2. Mild spinal stenosis at T5-6 and T7-8 3. Small right upper lobe nodule, likely benign but indeterminate in nature. A follow-up chest CT could be obtained in 6 months 4. Small hiatal hernia Electronically signed by Tian Valadez 07-07-2024 6:34 PM
[2024-07-07] MEDS ORDERED: ONDANSETRON INJ 2 MG/ML 2 ML VIAL IV PRN (20:32)
[2024-07-07] MEDS ORDERED: MELATONIN 3 MG TAB PO PRN (20:32)
[2024-07-07] MEDS ORDERED: HYDROmorphone INJ 0.5 MG/0.5 ML SYR IV PRN (20:32)
[2024-07-07] MEDS ORDERED: ACETAMINOPHEN 325 MG TAB PO PRN (20:32)
[2024-07-07] MEDS: GADOBUTROL 65ML VIAL IV ONE (22:36)
[2024-07-07] MEDS: GABAPENTIN 300 MG CAP PO SCH (23:35)
[2024-07-07] MEDS: RIVAROXABAN 20 MG TAB PO SCH (23:35)
[2024-07-07] MEDS: ROSUVASTATIN CALCIUM 10 MG TAB PO SCH (23:36)
[2024-07-07] MEDS: ATENOLOL 50 MG TABLET PO SCH (23:36)
[2024-07-07] MEDS: TEMAZEPAM 15 MG CAPSULE PO SCH (23:37)
[2024-07-08] MEDS: DOXAZOSIN MESYLATE 1 MG TAB PO SCH (00:10)
--- NOTE | 2024-07-08 00:58 | Magnetic Resonance Report ---
Exam(s): MRI T SPINE W/WO Contrast EXAM: MR Thoracic Spine Without and With Intravenous Contrast CLINICAL HISTORY: Reason for exam: comp fx spinal stenosis. TECHNIQUE: Magnetic resonance images of the thoracic spine without and with intravenous contrast in multiple planes. CONTRAST: Contrast must be dictated COMPARISON: Prior CT scan of the thoracic spine from July 07, 2024. FINDINGS: Vertebrae: There are 12 thoracic type vertebral bodies with a mild generalized curved to the left and normal thoracic kyphosis. There is normal vertebral body height and alignment. Multiple Schmorl's nodes. The bone marrow signal is heterogeneous with reactive endplate changes. No acute fracture. 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 Discs/spinal canal/neural foramina: No acute findings. There is mild disc degeneration at T7-8 with central disc extrusion measuring 10.5 mm (CC) by 3 x 3 mm (AP) flattening the ventral cord without evidence of abnormal cord signal. There is a critical spinal canal stenosis at T7-8. Spinal cord: Unremarkable. Normal signal. No abnormal enhancement. Soft tissues: Unremarkable. IMPRESSION: No evidence of acute thoracic spine pathology. There is a central disc extrusion at T7-8 flattening the ventral cord and causing a critical spinal canal stenosis without evidence of abnormal cord signal. Electronically signed by: Freda Anton MD 07/08/24 00:56 AM
[2024-07-08 07:21] VITALS: BP 167/92; PULSE 76; RESP 18; TEMP 97.3; O2SAT 97
[2024-07-08] MEDS: ISOSORBIDE MONO EXTENDED REL 30 MG TABCR PO SCH (08:06)
[2024-07-08] MEDS: LOSARTAN POTASSIUM 50 MG TAB PO SCH (08:06)
[2024-07-08] MEDS: FUROSEMIDE 20 MG TAB PO SCH (08:06)
--- NOTE | 2024-07-08 12:07 | Consultation ---
Date of Consultation July 08, 2024 Assessment & Plan (1) Acute thoracic back pain: Patient was admitted for left acute midthoracic pain yesterday. It has resolved. Dr. Olea has reviewed all imaging and treatment plan. Continue with conservative treatment. I disagree with the diagnosis of critical thoracic stenosis on MRI at T7-8. It is mild at best. She has no acute compression fractures. Activity as tolerated. Continue follow-up with the [facility] center. Will sign off. She stable for discharge. History of Present Illness Reason for Consultation: Compression fractures and stenosis Attending Physician: Marci Manzano MD History of Present Illness This this is an 83-year-old female who we are asked to see in consultation regarding acute left-sided midthoracic pain that started yesterday. No specific accident, trauma, fall. 24 hours later upon examination of her pain has resol ed. She had pain when she took a deep breath. It did not radiate to her anterior chest wall. No upper or lower extremity complaints. She alternates between a cane and a walker at home. She manages chronic pain with tramadol and gabapentin at home. She is established with [facility]. Most recently she has had RFA's. Allergies Allergy/AdvReac Type Severity Reaction Status Date / Time No Known Allergies Allergy Verified 07/07/24 17:56 Home Medications Medication Instructions Recorded Confirmed Type multivitamin (Daily Multi-Vitamin 1 tab PO DAILY 01/31/18 07/07/24 History tablet) temazepam 30 mg capsule (Restoril) 30 mg PO HS 01/31/18 07/07/24 History rosuvastatin 10 mg tablet 10 mg PO HS 02/28/23 07/07/24 History atenolol 50 mg tablet 50 mg PO BID 12/05/23 07/07/24 History doxazosin 1 mg tablet 1 mg PO HS 12/05/23 07/07/24 History rivaroxaban 20 mg tablet (Xarelto) 20 mg PO HS 12/05/23 07/07/24 History gabapentin 300 mg capsule 300 mg PO TID #180 caps 01/23/24 07/07/24 Rx furosemide 20 mg tablet 20 mg PO QAM 07/06/24 07/07/24 History isosorbide mononitrate 30 mg 30 mg PO DAILY 07/06/24 07/07/24 History tablet,extended release 24 hr losartan 100 mg tablet 100 mg PO DAILY 07/06/24 07/07/24 History nystatin-triamcinolone 100,000 1 applic topical DAILY PRN 07/06/24 07/07/24 History unit/gram-0.1 % topical ointment Irritation tramadol 50 mg tablet 50 mg PO BID PRN pain 07/07/24 07/07/24 History Patient History Social History Smoking Status: Never smoker Second Hand Exposure: No; Do You Dip or Chew Tobacco: No; Hx Alcohol Use: No Hx Substance Use: No Preferred Language: Ukrainian Communication Ability: Effective Visual Impairment: No Limitations Hearing Ability: Normal Bunghole Borer Required: No Beliefs That Will Affect Care: Hindu Hindu Beliefs: Roman Catholic marital status: Current Living Situation: Spouse current occupational status: retired Feels Safe at Home: Yes Assistive Devices: Cane and Walker Review of Systems Review of Systems: All systems reviewed & are unremarkable except as noted in HPI & below Physical Exam Physical Exam: She sitting on the edge of the bed with her son and her in the room Alert and oriented x 3 no acute distress No ecchymosis, abrasions no palpable step-offs over the thoracic and lumbar spine. I am unable to reproduce tenderness midline or in the paraspinal muscles of the thoracic spine bilaterally Strength is intact bilateral lower extremities Results & Data Vital Signs (Past 12 Hours) Vital Signs Temp Pulse Resp BP Pulse Ox O2 Del Method 07/08/24 07:20 36.3 C L 76 18 167/92 H 97 Room Air Diagnostic Findings [place], [place] [phone] CT Scan Report Patient: BRANDEN YADAV Admit Date: 07/07/24 MR#: [id number] Address1: Acct ID:[id number] Address2: Date: 1940 [facility] Zip: [place] [address] Age: 83 Location: ED Sex: F Room/Bed: Att Phy: Diagnosis: BACK PAIN Karlie Phy: Nuris Small MD Service Date: 07/07/24 [facility] Phy: Interpreting Phy: Tian Bucio Phy: Ordering Phy: Andrea Fiore PA-C cc: ~ Clinical history: Back pain Technique: Axial computed tomography images were obtained of the thoracic spine after the administration of intravenous contrast. Sagittal and coronal reconstructions were obtained Comparison is made to the MRI of the lumbar spine dated 06/20/2023 Findings: There is multilevel Schmorl's node formation. There are mild compression fractures of the T5, T6, T7, T8, and T9 vertebral bodies, with loss of up to 15% of the vertebral body height. There is no retropulsion of bone into the spinal canal. No definite acute fracture is identified. There is mild scoliosis. No listhesis is seen. Again seen is a hemangioma in the L1 vertebral body. There is no definite sign of osteomyelitis At T1-2 and T2-3, no pathology is seen At T3-4 and T4-5, there are mild anterior disc bulges without spinal stenosis. The neural foramen are patent At T5-6, there is mild spinal stenosis due to a disc bulge and a right paracentral disc herniation. The neural foramen appear patent At T6-7, there is a mild disc bulge without spinal stenosis. The neural foramen appear patent At T7-8, there is mild spinal stenosis due to a disc bulge and a central disc protrusion. The neural foramen appear patent At T8-9, there is a disc bulge without spinal stenosis. The neural foramen appear patent At T9-10, T10-11, and T11-12, there are predominantly anterior disc bulges without spinal stenosis. The neural foramen appear patent There is a 3 mm right upper lobe nodule. There is a small hiatal hernia Impression: 1. Mild compression fractures of T5-T9, likely old but of indeterminate age 2. Mild spinal stenosis at T5-6 and T7-8 3. Small right upper lobe nodule, likely benign but indeterminate in nature. A follow-up chest CT could be obtained in 6 months 4. Small hiatal hernia Electronically signed by Tian Valaedz 07-07-2024 6:34 PM Dictated: 07/07/24 1523 Transcribed: [facility], [place] [phone] Magnetic Resonance Report Patient: BRANDEN YADAV Admit Date: 07/07/24 MR#: [id number] Address1: Acct ID:[id number] Address2: Date: 1940 [facility] Zip: [place] [address] Age: 83 Location: 3W Sex: F Room/Bed: [facility] Att Phy: Marci Manzano MD Diagnosis: BACK PAIN, AMBULATORY DYSFUNCTION Karlie Phy: Nuris Small MD Service Date: 07/07/24 Fam Phy: Interpreting Phy: Freda Anton MDAdmit Phy: Juarez Smalls, PhD, DO Ordering Phy: Juarez Smalls, PhD, DO cc: ~ Exam(s): MRI T SPINE W/WO Contrast EXAM: MR Thoracic Spine Without and With Intravenous Contrast CLINICAL HISTORY: Reason for exam: comp fx spinal stenosis. TECHNIQUE: Magnetic resonance images of the thoracic spine without and with intravenous contrast in multiple planes. CONTRAST: Contrast must be dictated COMPARISON: Prior CT scan of the thoracic spine from July 07, 2024. FINDINGS: Vertebrae: There are 12 thoracic type vertebral bodies with a mild generalized curved to the left and normal thoracic kyphosis. There is normal vertebral body height and alignment. Multiple Schmorl's nodes. The bone marrow signal is heterogeneous with reactive endplate changes. No acute fracture. 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 Discs/spinal canal/neural foramina: No acute findings. There is mild disc degeneration at T7-8 with central disc extrusion measuring 10.5 mm (CC) by 3 x 3 mm (AP) flattening the ventral cord without evidence of abnormal cord signal. There is a critical spinal canal stenosis at T7-8. Spinal cord: Unremarkable. Normal signal. No abnormal enhancement. Soft tissues: Unremarkable. IMPRESSION: No evidence of acute thoracic spine pathology. There is a central disc extrusion at T7-8 flattening the ventral cord and causing a critical spinal canal stenosis without evidence of abnormal cord signal. Electronically signed by: Freda Anton MD 07/08/24 00:56 AM Dictated: 07/08/2455 Transcribed: 07/08/2455 Document Auto-Saved
[2024-07-08] MEDS: traMADol HCL 50 MG TABLET PO PRN (13:09)
--- NOTE | 2024-07-08 13:55 | Discharge Summary ---
Discharge Summary Date of Service July 08, 2024 Principal Dx & Hospital Course #1 = Principal Diagnosis (1) Acute thoracic back pain: (2) Ambulatory dysfunction: Plan #Back pain Shannon is an 83-year-old female with PMH of diabetes, HTN, CAD s/p stent placement, aortic valve replacement, spinal stenosis, and multiple strokes. She presented on 07/07 for acute onset left middle back pain that began at 7:30 AM. No Recent injuries or trauma. Pain improved after Dilaudid administration in the ER. No signs of cauda equina. She had a CT A/P without acute findings. Chest CTA without PE. Thoracic spine CT with old compression fractures and Thoracic spine MRI with canal stensosis. This was read as severe by radiology, but discussed with ortho spine PA/Surgery team and suspect mild. Patient pain controlled without any prns and ambulating without issue. No surgical intervention needed at this time. Recommend return home, with pain management follow up. #Lung Nodule Incidental finding on T-Spine CT. Recommend 6 month follow up #Atrial fibrillation Rate controlled - Continue atenolol, Xarelto Disposition: discharge to home today Notes For Next Care Provider CT chest in 6 months Admission HPI Per Admitting Provider Shannon is an 83-year-old female with PMH of diabetes, HTN, CAD s/p stent placement, aortic valve replacement, spinal stenosis, and multiple strokes. She presented on 07/07 for left middle back pain that began at 7:30 AM. Patient reports she felt fine when she woke up, but then developed acute onset of pain on her left upper and middle spine. She rates the pain 10/10 at worst, and characterizes it as a sharp, stabbing pain that is worse with deep breaths. She reports it is 8/10 after receiving Dilaudid in the ED. Patient does have a history of lumbar spinal stenosis, but reports this feels different as it is much higher in her spine. No recent injuries to the head, neck, or back. No abnormal activities. Patient takes gabapentin and tramadol for her back pain, and reports that her tramadol dosage was increased yesterday without relief. The pain has gradually gotten worse throughout the day. No saddle anesthesia or loss of urinary continence. Patient does follow-up with the pain clinic and has had multiple injections and ablations in her lower spine. Additionally, she does have a history of shingles on her right side, and was diagnosed with it 1 week ago. She is not currently vaccinated against shingles, but reports she has had it 3-4 times in the past. It should be noted that there was 1 episode this past week where she woke up in the middle the night with pain in her shins bilaterally. Patient took her regular morning medicine today; no recent changes besides increasing her tramadol dosage. Patient ambulates with a cane and walker at baseline. No history of pancreatitis. No history of heart failure to her knowledge, but she has been told that she has a "leaky" aortic valve in the past, and she has been taking Lasix daily for fluid buildup in her legs. Additionally, patient does have a history of strokes, but denies any strokelike symptoms such as slurred speech, facial droop, unilateral deficits. Patient is hypertensive at 147/76 at time admission; vitals otherwise stable. ED course: Morphine sulfate 4 mg IV Zofran 4 mg IV Hydromorphone 0.5 mg IV Acetaminophen 1000 mg IV ROS: Patient endorses feeling, off-balance, headaches, chest heaviness, YANEZ, and occasional abdominal cramping. Patient denies fever, chills, night-sweats, dizziness, lightheadedness, photophobia, neck pain/stiffness, SOB at rest, orthopnea, N/V/D, saddle anesthesia, N/T in the legs, or loss of bowel/bladder. Discharge Exam General: NAD, VS as above Resp: normal respiratory effort, lungs clear to auscultation CV: RRR, no murmur, Abd: normal bowel sounds, non tender, no hepatosplenomegaly Extremities: Moves all extremities, b/l UE strength 5/5. Back: tender to palpation left mid back. No spinal tendernous. Neuro: A&O x3, Skin: intact, no lesions noted Discharge Plan Discharge Items Patient Disposition: Home - Self-Care Reason For Visit: BACK PAIN, AMBULATORY DYSFUNCTION Discharge Diagnosis: Back Pain Activity: Resume your previous activity Non-emergency contact: Primary Care Provider Call non-emergency contact if: you have any medication questions, your symptoms worsen, your pain is not controlled and your pain is worsening Follow-up/Referrals: Nuris Small MD [Primary Care Provider] - Diet: Regular Addtl Attending Provider Instructions: Ms. Reza, You were hospitalized after having acute upper back pain. Your imaging showed old compression fractures and stenosis in your thoracic spine. You were evaluated by the orthospine team who did NOT recommend any surgical intervention and recommended continue follow up with the pain clinic. There was an incidental finding on your CT of a lung nodule. This is small and likely not anything, but radiology is recommending a repeat CT scan in 6 months just to make sure it has not changed. Your PCP can order this for you. No changes to your home medications. If the med list does not reflect the most updated meds from your recent pain management visit, please follow the instructions that you were given at pain management. They will be able to see all the images that were taken during your stay. Pending Studies at Discharge: No Stand-Alone Forms: [facility], Smoking Cessation Medications and DC Order Prescriptions: Continued multivitamin [Daily Multi-Vitamin] tablet 1 tab PO DAILY Rx Instructions: Unable to verify OTC meds at this date/time. temazepam [Restoril] 30 mg capsule 30 mg PO HS rosuvastatin 10 mg tablet 10 mg PO HS atenolol 50 mg tablet 50 mg PO BID doxazosin 1 mg tablet 1 mg PO HS Xarelto 20 mg tablet 20 mg PO HS isosorbide mononitrate 30 mg tablet extended release 24 hr 30 mg PO DAILY gabapentin 300 mg capsule 300 mg PO TID Qty: 180 3RF furosemide 20 mg tablet 20 mg PO QAM nystatin-triamcinolone 100,000-0.1 unit/gram-% ointment 1 applic topical DAILY PRN (Reason: Irritation) losartan 100 mg tablet 100 mg PO DAILY tramadol 50 mg tablet 50 mg PO BID PRN (Reason: pain) Discharge Orders: Discharge Order (Routine); Ordered 07/08/24 Ordered By: Maggy Domínguez/Other Patient Handouts: Shingles (Herpes Zoster) Admission Data Admit Date/Time: 07/07/24 17:46 Attending Provider: Marci Manzano Admit Provider: Juarez Smalls Primary Care Provider: Nuris Small Other Providers: Juraez Smalls; Torey Olea Other Interventions: Discharge Summary Assessment (RN) Last Done: 07/08/24 13:13 Hospital Stay Data Consultations 07/07/24 16:31 ED Decision to Admit Stat 07/07/24 18:58 Consult Orthopedic Spine Surgery Routine Diagnostic Imagining Performed Abdomen/Pelvis CT 07/07/24 12:[address] WITH IV CONTRAST CT DOSE: 1787.29 mGy.cm HISTORY: Acute left-sided abdominal pain left sided pain TECHNIQUE: Multiaxial CT images of the abdomen and pelvis were performed following the IV administration of 93 cc of Optiray, A dose lowering technique was utilized adhering to the principles of ALARA. COMPARISON STUDY: 02/20/2022 FINDINGS: Cardiomegaly with unchanged small pericardial effusion. Aortic endograft. Coronary artery calcifications. Clear lung bases. No pneumatosis or pneumoperitoneum. Unremarkable spleen, pancreas, gallbladder, adrenal glands and liver. Cortical thinning of the kidneys with bilateral perinephric stranding. 2.7 cm cyst of the superior pole right kidney. Unremarkable urinary bladder. Heterogeneous uterus with calcified fibroid. Atherosclerosis of the aorta without aneurysm. No lymphadenopathy. Small hiatal hernia. 4.8 cm duodenal diverticulum. Pelvic floor relaxation. Colonic diverticulosis without acute diverticulitis. Nonvisualization of the appendix. Tiny fat filled umbilical hernia. Unremarkable soft tissues. L1 vertebral body hemangioma. No acute fracture. IMPRESSION: 1. No acute intra-abdominal or intrapelvic abnormality. 2. Colonic diverticulosis without acute diverticulitis. 3. Cardiomegaly with unchanged small pericardial effusion. 4. Small hiatal hernia. ACT 112: Negative or not required by law. The above report was generated using voice recognition software. It may contain grammatical, syntax or spelling errors. Electronically signed by: Pavan Lopez M.D. 07/07/2024 1:57 PM Chest X-Ray 07/07/24 12:59 XR chest 1V portable CLINICAL HISTORY: edema COMPARISON STUDY: None FINDINGS: There is moderate cardiomegaly without pulmonary vascular congestion. No effusion, consolidation, or pneumothorax. IMPRESSION: No acute findings. ACT 112: Negative or not required by law. Electronically signed by: Brian Evans M.D. 07/07/2024 1:28 PM Chest CTA 07/07/24 14:38 CT angio chest PE protocol CT DOSE: 887.57 mGy.cm HISTORY: PE. TECHNIQUE: Multiple CTA images of the chest were obtained after the intravenous administration of 120 ml Optiray. Coronal and sagittal MIPS were obtained from the axial data set and were submitted for review. All measurements were obtained according to NASCET criteria. A dose lowering technique was utilized adhering to the principles of ALARA. COMPARISON STUDY: None FINDINGS: There is no pulmonary consolidation, pleural effusion, or pneumothorax. No significant pulmonary nodule. No enlarged adenopathy. There is a trace pericardial effusion. There is prior aortic valve repair. No pulmonary embolism. There are diffuse thoracic spine degenerative changes. IMPRESSION: No pulmonary embolism seen. ACT 112: Negative or not required by law. The above report was generated using voice recognition software. It may contain grammatical, syntax or spelling errors. Electronically signed by: Brian Evans M.D. 07/07/2024 3:[address] 07/07/24 17:30 Clinical history: Back pain Technique: Axial computed tomography images were obtained of the thoracic spine after the administration of intravenous contrast. Sagittal and coronal reconstructions were obtained Comparison is made to the MRI of the lumbar spine dated 06/20/2023 Findings: There is multilevel Schmorl's node formation. There are mild compression fractures of the T5, T6, T7, T8, and T9 vertebral bodies, with loss of up to 15% of the vertebral body height. There is no retropulsion of bone into the spinal canal. No definite acute fracture is identified. There is mild scoliosis. No listhesis is seen. Again seen is a hemangioma in the L1 vertebral body. There is no definite sign of osteomyelitis At T1-2 and T2-3, no pathology is seen At T3-4 and T4-5, there are mild anterior disc bulges without spinal stenosis. The neural foramen are patent At T5-6, there is mild spinal stenosis due to a disc bulge and a right paracentral disc herniation. The neural foramen appear patent At T6-7, there is a mild disc bulge without spinal stenosis. The neural foramen appear patent At T7-8, there is mild spinal stenosis due to a disc bulge and a central disc protrusion. The neural foramen appear patent At T8-9, there is a disc bulge without spinal stenosis. The neural foramen appear patent At T9-10, T10-11, and T11-12, there are predominantly anterior disc bulges without spinal stenosis. The neural foramen appear patent There is a 3 mm right upper lobe nodule. There is a small hiatal hernia Impression: 1. Mild compression fractures of T5-T9, likely old but of indeterminate age 2. Mild spinal stenosis at T5-6 and T7-8 3. Small right upper lobe nodule, likely benign but indeterminate in nature. A follow-up chest CT could be obtained in 6 months 4. Small hiatal hernia Electronically signed by Tian Valadez 07-07-2024 6:34 PM Thoracic Spine MRI 07/07/24 18:58 Exam(s): MRI T SPINE W/WO Contrast EXAM: MR Thoracic Spine Without and With Intravenous Contrast CLINICAL HISTORY: Reason for exam: comp fx spinal stenosis. TECHNIQUE: Magnetic resonance images of the thoracic spine without and with intravenous contrast in multiple planes. CONTRAST: Contrast must be dictated COMPARISON: Prior CT scan of the thoracic spine from July 07, 2024. FINDINGS: Vertebrae: There are 12 thoracic type vertebral bodies with a mild generalized curved to the left and normal thoracic kyphosis. There is normal vertebral body height and alignment. Multiple Schmorl's nodes. The bone marrow signal is heterogeneous with reactive endplate changes. No acute fracture. 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 Discs/spinal canal/neural foramina: No acute findings. There is mild disc degeneration at T7-8 with central disc extrusion measuring 10.5 mm (CC) by 3 x 3 mm (AP) flattening the ventral cord without evidence of abnormal cord signal. There is a critical spinal canal stenosis at T7-8. Spinal cord: Unremarkable. Normal signal. No abnormal enhancement. Soft tissues: Unremarkable. IMPRESSION: No evidence of acute thoracic spine pathology. There is a central disc extrusion at T7-8 flattening the ventral cord and causing a critical spinal canal stenosis without evidence of abnormal cord signal. Electronically signed by: Freda Anton MD 07/08/24 00:56 AM Pending Results Patient Have Any Pending Studies at Discharge: No Discharge Instructions Given to Patient (Per Discharging Provider) Ms. Reza, You were hospitalized after having acute upper back pain. Your imaging showed old compression fractures and stenosis in your thoracic spine. You were evaluated by the orthospine team who did NOT recommend any surgical intervention and recommended continue follow up with the pain clinic. There was an incidental finding on your CT of a lung nodule. This is small and likely not anything, but radiology is recommending a repeat CT scan in 6 months just to make sure it has not changed. Your PCP can order this for you. No changes to your home medications. If the med list does not reflect the most updated meds from your recent pain management visit, please follow the instructions that you were given at pain management. They will be able to see all the images that were taken during your stay. Supervising Physician Co-Signing Physician Notes JAYRO Supervision Note: I did not personally see or examine the patient today, but I verified all bird points of JAYRO Guevara's assessment and plan with the following exceptions/additions: None Total Time Total Time Spent Total Time Spent (In Minutes): Time spent day of discharge 36 minutes including direct patient care, medication reconciliation, documentation, review of labs and images, and coordination of care. Coding Level of Care Code 97403 INP/OBS DISCH >30 MIN Diagnoses Acute thoracic back pain M54.6 Ambulatory dysfunction R26.2
== END 2024-07-08 13:32 | disposition home or self-care (01) ==
LOC: EDINP 10:05 → ED 10:05 → SUATTDRO 17:46 → 3W 20:32

== ENCOUNTER 2025-02-14 09:09 | Inpatient (IN) ==
--- NOTE | 2025-02-14 09:37 | Emergency Department Note ---
Impression & Plan Rectal bleeding, Lower abdominal pain, Anticoagulated ED Provider Note NAME: BRANDEN YADAV AGE: 84 SEX: F : 1940 ARRIVES VIA: Walk-In INFORMANT: [Patient] ED PROVIDER(S): [Kapil Perdomo MD] CHIEF COMPLAINT: Rectal bleeding HISTORY OF PRESENT ILLNESS: The patient is an 84-year-old female who states that 3 days ago, she had rectal bleeding with clots. The stool has been loose. For the last several days, she has had multiple episodes of loose stool with blood and clots. She feels a bit short of breath and a bit lightheaded. She has some diffuse abdominal pain. No fever. No respiratory complaints, no urinary complaints. Patient does use Xarelto. She last took a dose last evening, no dose yet today. Because of the ongoing symptoms, the patient presents for evaluation. No sick contacts, no bad food eaten. PMHx/PSHx/Social Hx: See Below PHYSICAL EXAM: GENERAL: Patient is in no acute distress. HEENT: No acute trauma, normocephalic atraumatic, mucous membranes moist, no nasal congestion. NECK: No stridor, no adenopathy, no meningismus, trachea is midline. LUNGS: Clear to auscultation bilaterally, no wheeze, no rhonchi, breath sounds equal. HEART: Without murmurs gallops or rubs, slightly irregular rhythm, normal rate. ABDOMEN: Soft, mildly diffusely tender, no peritonitis. EXTREMITIES: No cyanosis, full range of motion of all the joints without pain or difficulty. NEUROLOGIC: Oriented x 3, no acute motor or sensory deficits, no focal weakness. SKIN: No jaundice, no diaphoresis. DIFFERENTIAL DIAGNOSIS: Colitis, diverticulitis, foodborne or viral illness, anemia, coagulopathy, among others. EMERGENCY DEPARTMENT PROCEDURES: MEDICAL DECISION MAKING: There is no leukocytosis or concerning anemia. There is a normal platelet count. INR is 1.5, this elevation is likely from her Xarelto use. There is no renal failure or significant electrolyte abnormality. No concerning liver enzyme elevation. Abdominal and pelvis CT shows diverticulosis and constipation, no obvious source for her rectal bleeding. No acute surgical process. On exam, the patient was resting comfortably and was in no distress. She was somewhat hypertensive but asymptomatic with the higher blood pressure value. Patient received IV saline, 500 cc. She was given IV Protonix. The patient presents with ongoing rectal bleeding. The source is not clear by history or exam but, certainly may be diverticular. The bleeding does appear to be lower GI bleeding. As the patient is on Xarelto, as she has had ongoing rectal bleeding, admission/observation and a GI consult are warranted. I spoke with the patient and case management, the on-call hospitalist was consulted. Prior/Outside records/notes reviewed: None ECG per my interpretation: Indication was rectal bleeding. The ECG shows atrial fibrillation with a rate of 71. There is a left bundle branch block. There is no obvious ST elevation, no PVCs. The QTc is 471. Continuous Cardiac Monitoring per my interpretation: An order was placed for continuous cardiac monitoring. The monitor shows a rate of 72 with atrial fibrillation. Imaging/x-ray results per my interpretation: Chronic Medical/Social conditions affecting care: Advanced age, chronic Xarelto use. Care/Management discussed with: Case management and the on-call hospitalist. Level of care consideration(s): After review of the information above and other included data: --I believe the patient requires escalation of care to admission DISPOSITION: Admission Past Med/Surg History Problem List (Updated 02/14/25 @ 13:49 by Kapil Perdomo MD) Anticoagulated (Acute) Lower abdominal pain (Acute) Rectal bleeding (Acute) Right rotator cuff tendinitis Left trigger finger Right lower quadrant abdominal pain Achilles tendinitis, left leg Posterior tibial tendinitis Arthritis of knee, left Effusion, left knee Chondrocalcinosis Bilateral primary osteoarthritis of knee Rotator cuff syndrome of left shoulder S/P coronary artery stent placement History of aortic valve replacement TAVR procedure 04/13/2019 Lumbar stenosis with neurogenic claudication H/O transesophageal echocardiography (LELIA) for monitoring (Chronic) History of multiple strokes (Chronic) 04/29 and 05/31 History of loop recorder (Acute) 05/27/2018 H/O right heart catheterization (Chronic) not sure if right or left - thought both sides were looked at - 04/29 Lumbar facet joint syndrome (Chronic) History of coronary artery stent placement (Chronic) Hypertension (Chronic) Diabetes (Chronic) Medical History Shingles Back pain Social History Smoking Status: Never smoker Second Hand Exposure: No; Do You Dip or Chew Tobacco: No; Hx Alcohol Use: No Hx Substance Use: No Preferred Language: [place] Communication Ability: Effective Visual Impairment: No Limitations Hearing Ability: Normal Melting Operator Required: No Beliefs That Will Affect Care: Mosque Mosque Beliefs: Rastafari marital status: Current Living Situation: Spouse current occupational status: retired Feels Safe at Home: Yes Assistive Devices: Cane and Walker Allergies Allergies Allergy/AdvReac Type Severity Reaction Status Date / Time No Known Allergies Allergy Verified 10/06/24 09:10 Home Meds Home Medications Medication Instructions Recorded Confirmed multivitamin (Daily Multi-Vitamin 1 tab PO DAILY 01/31/18 02/14/25 tablet) temazepam 30 mg capsule (Restoril) 30 mg PO HS 01/31/18 02/14/25 rosuvastatin 10 mg tablet 10 mg PO HS 02/28/23 02/14/25 atenolol 50 mg tablet 50 mg PO BID 12/05/23 02/14/25 doxazosin 1 mg tablet 1 mg PO HS 12/05/23 02/14/25 rivaroxaban 20 mg tablet (Xarelto) 20 mg PO HS 12/05/23 02/14/25 isosorbide mononitrate 30 mg 30 mg PO DAILY 07/06/24 02/14/25 tablet,extended release 24 hr losartan 100 mg tablet 100 mg PO DAILY 07/06/24 02/14/25 gabapentin 300 mg capsule 300 mg PO BID 10/06/24 02/14/25 clobetasol 0.05 % topical ointment 1 applic topical DAILY 02/14/25 02/14/25 estradiol 0.01% (0.1 mg/gram) 1 g vaginal 2XWK 02/14/25 02/14/25 vaginal cream psyllium husk 0.52 gram capsule 0.52 g PO TID 02/14/25 02/14/25 Results & Data (ED) Vital Signs Vital Signs - 24 hr 02/14/25 09:15 02/14/25 09:33 02/14/25 09:40 Temperature 36.8 C Temperature Source Temporal Artery Scan Pulse Rate 72 72 Pulse Rate from SpO2 Sensor Respiratory Rate 18 Respiratory Effort / Characteristics Non-Labored Respiratory Depth Normal Blood Pressure 157/98 H Blood Pressure Mean 117 Pulse Oximetry 97 95 Oxygen Delivery Method Room Air Room Air Sepsis Recent Fever Within 48 Hours No Sepsis New/Unexplained Change in Mental Status No Sepsis Action Taken by Nursing No Action Required 02/14/25 10:00 02/14/25 10:48 02/14/25 11:00 Temperature Temperature Source Pulse Rate 66 67 59 L Pulse Rate from SpO2 Sensor 67 59 L 60 Respiratory Rate 14 22 20 Respiratory Effort / Characteristics Respiratory Depth Blood Pressure 134/85 151/97 H 147/91 H Blood Pressure Mean 103 115 109 Pulse Oximetry 94 95 96 Oxygen Delivery Method Sepsis Recent Fever Within 48 Hours Sepsis New/Unexplained Change in Mental Status Sepsis Action Taken by Nursing 02/14/25 12:00 02/14/25 13:00 Temperature Temperature Source Pulse Rate 61 63 Pulse Rate from SpO2 Sensor 60 64 Respiratory Rate 18 17 Respiratory Effort / Characteristics Respiratory Depth Blood Pressure 166/105 H 172/111 H Blood Pressure Mean 125 125 Pulse Oximetry 95 94 Oxygen Delivery Method Sepsis Recent Fever Within 48 Hours Sepsis New/Unexplained Change in Mental Status Sepsis Action Taken by Correction Medications Current Medication List: was personally reviewed by me Laboratory Data Attestation: I reviewed the patient's lab results. 02/14/25 09:28 02/14/25 09:28 Lab Results 02/14/25 02/14/25 Range/Units 09:28 09:55 WBC 5.41 (4.8-10.8) K/ul RBC 4.60 (4.20-5.40) M/uL Hgb 12.8 (12.0-16.0) g/dl Hct 40.2 (37.0-47.0) % MCV 87.4 (80.0-100.0) fL MCH 27.8 (25.0-34.0) pg MCHC 31.8 L (32.0-36.0) g/dL RDW Std Deviation 43.7 (36.4-46.3) fL RDW Coeff of Lazara 13.8 (11.5-14.5) % Plt Count 138 (130-400) K/uL MPV 10.1 (9.4-12.4) fL Immature Gran % (Auto) 0.4 % Neut % (Auto) 74.2 % Lymph % (Auto) 15.0 % [place] % (Auto) 7.0 % Eos % (Auto) 2.8 % Baso % (Auto) 0.6 % Neut # (Auto) 4.02 (1.40-6.50) K/uL Lymph # (Auto) 0.81 L (1.20-3.40) K/uL [place] # (Auto) 0.38 (0.11-0.59) K/uL Eos # (Auto) 0.15 (0.00-0.50) K/uL Baso # (Auto) 0.03 (0.00-0.20) K/uL Immature Gran # (Auto) 0.02 (0.01-0.20) K/uL PT Cancelled 15.6 H INR Cancelled 1.5 H APTT Cancelled 38 H PTT Ratio Cancelled 1.4 Sodium 140 (136-145) mmol/L Potassium 4.2 (3.5-5.1) mmol/L Chloride 102 (98-107) mmol/L Carbon Dioxide 32 (21-32) mmol/L Anion Gap 6 (3-11) BUN 17 (6-23) mg/dl Creatinine 0.98 (0.6-1.2) mg/dl Est Cr Clr Drug Dosing Not Reportable eGFR 57.27 BUN/Creatinine Ratio 17.3 (10-20) Glucose 100 H (70-99(Fasting)) mg/dl Calcium 9.9 (8.6-10.3) mg/dl Magnesium 1.9 (1.7-2.4) mg/dl Total Bilirubin 1.2 H (0.2-1.0) mg/dl AST 20 (13-39) U/L ALT 11 (7-52) U/L Alkaline Phosphatase 108 H (34-104) U/L Total Protein 7.2 (6.0-8.3) gm/dl Albumin 4.1 (3.4-5.0) gm/dl Globulin 3.1 (2.5-4.0) gm/dl Albumin/Globulin Ratio 1.3 (0.9-2) Blood Type O Negative Antibody Screen NEGATIVE Administered Medications Discontinued Medications Sodium Chloride (Nss) 500 mls @ 999 mls/hr IV .Q31M [place] Stop: 02/14/25 10:15 Last Infusion: 02/14/25 11:23 Dose: Infused Documented By: Admin: 02/14/25 09:54 Dose: 999 mls/hr Documented By: TDM Pantoprazole Sodium (Protonix) 40 mg in 10 mls @ 5 mls/min IV NOW ONE Stop: 02/14/25 09:33 Last Admin: 02/14/25 09:54 Dose: 5 mls/min Documented By: NAIFM Ioversol (Optiray 320 100ml) 94 ml IV ONCE ONE Stop: 02/14/25 11:31 Last Admin: 02/14/25 11:30 Dose: 94 ml Documented By: SAMAN Imaging Data Radiologist's Impression: Abdomen/Pelvis CT 02/14/25 09:32 EXAM: CT Abdomen and Pelvis With Intravenous Contrast INDICATION: Abdominal pain, weakness and blood in stool. History of hemorrhoids. TECHNIQUE: Axial computed tomography images of the abdomen and pelvis with intravenous contrast. Sagittal and coronal reformatted images were created and reviewed. This CT exam was performed using one or more of the following dose reduction techniques: automated exposure control, adjustment of the mA and/or kV according to patient size, and/or use of iterative reconstruction technique. CONTRAST: 94 ml of Optiray 320 was administered intravenously. COMPARISON: 02/20/2022 and 07/07/2024 FINDINGS: Limitations: None. Lung bases: No abnormality noted. Pleural space: No visualized pleural effusion or pneumothorax. Heart: Stable small pericardial effusion, cardiomegaly and aortic valve stent graft. Mediastinum: No abnormality noted. ABDOMEN: Liver: No abnormality noted. Gallbladder and bile ducts: The gallbladder is minimally distended. No calcified stones seen. No ductal dilatation. Pancreas: Homogeneous enhancement. No mass, inflammation or ductal dilation. Spleen: No significant abnormality noted. Adrenals: No significant abnormality noted. Kidneys and ureters: Simple right renal cysts. No follow-up of these simple cysts is necessary. Stomach and bowel: Moderate amounts of stool in the colon with diffuse diverticulosis. No diverticulitis or obstruction. There is a 5.0 x 3.5 cm duodenal C-loop diverticulum similar to before. Stable prominent perianal soft tissues. PELVIS: Appendix: No findings to suggest acute appendicitis. Bladder: No filling defects to suggest mass or large stone. No inflammation. Reproductive: Stable calcified uterine fibroid. ABDOMEN and PELVIS: Intraperitoneal space: No free air. No significant fluid collection. Bones/joints: Degenerative changes noted throughout the spine. No acute osseous abnormality seen. Soft tissues: No significant abnormality noted. Vasculature: Atherosclerotic calcification of the aorta and branches. No aneurysm. Lymph nodes: No pathologically enlarged lymph nodes. IMPRESSION: 1. Moderate colonic stool and diverticulosis. No diverticulitis. 2. Soft tissue density at the anal verge consistent with the history of hemorrhoids. ACT 112: N/A Electronically signed by Tristen Freda 02-14-2025 11:57 AM Discharge Plan Visit Data Chief Complaint: Rectal Bleed Stated Complaint: PASSING BLOOD (RECTUM) & LEG ISSUE ED Provider: Kapil Perdomo Discharge Problem: Rectal bleeding, Lower abdominal pain, Anticoagulated Patient Disposition: Admitted As Inpatient Condition: Fair Forms Stand Alone Forms: My [facility] [place] Prescriptions Prescriptions: No Action gabapentin 300 mg capsule 300 mg PO BID multivitamin [Daily Multi-Vitamin] tablet 1 tab PO DAILY Rx Instructions: Unable to verify OTC meds at this date/time. temazepam [Restoril] 30 mg capsule 30 mg PO HS rosuvastatin 10 mg tablet 10 mg PO HS atenolol 50 mg tablet 50 mg PO BID doxazosin 1 mg tablet 1 mg PO HS Xarelto 20 mg tablet 20 mg PO HS isosorbide mononitrate 30 mg tablet extended release 24 hr 30 mg PO DAILY losartan 100 mg tablet 100 mg PO DAILY clobetasol 0.05 % ointment 1 applic TOPICAL DAILY estradiol 0.01 % (0.1 mg/gram) cream 1 g VAGINAL 2XWK psyllium husk [Metamucil] 0.52 gram Capsule 0.52 g PO TID Referrals Referrals: Nuris Small MD [Primary Care Provider] -
[2025-02-14 09:53] LABS: Hematocrit (blood only) 40.2 % (37.0-47.0); Hemoglobin 12.8 g/dl (12.0-16.0); Immature Granulocytes # (auto) 0.02 K/uL (0.01-0.20); Immature Granulocytes % (auto) 0.4 %; Mean Corpuscular Hemoglobin 27.8 pg (25.0-34.0); Mean Corpuscular Volume 87.4 fL (80.0-100.0); Platelet Count 138 K/uL (130-400); RDW Standard Deviation 43.7 fL (36.4-46.3); Red Blood Count 4.60 M/uL (4.20-5.40); White Blood Count 5.41 K/ul (4.8-10.8)
[2025-02-14] MEDS: PANTOprazole 40 MG/10 ML SYR IV ONE (09:54)
[2025-02-14] MEDS: SODIUM CHLORIDE 0.9% 500 ML IV SCH (09:54)
[2025-02-14 09:58] LABS: Alanine Aminotransferase 11 U/L (7-52); Albumin Globulin Ratio 1.3 (0.9-2); Albumin Level 4.1 gm/dl (3.4-5.0); Alkaline Phosphatase 108 U/L (34-104); Anion Gap 6 (3-11); Bilirubin,Total 1.2 mg/dl (0.2-1.0); Blood Urea Nitrogen 17 mg/dl (6-23); Calcium 9.9 mg/dl (8.6-10.3); Carbon Dioxide 32 mmol/L (21-32); Chloride 102 mmol/L (98-107); Globulin 3.1 gm/dl (2.5-4.0); Glucose 100 mg/dl (70-99(Fasting)); Magnesium 1.9 mg/dl (1.7-2.4); Potassium 4.2 mmol/L (3.5-5.1); Sodium 140 mmol/L (136-145); Total Protein 7.2 gm/dl (6.0-8.3)
[2025-02-14 10:46] LABS: INR 1.5 (0.9-1.1); Partial Thromboplastin Time 38 Seconds (21-31); Prothrombin Time 15.6 Seconds (9.0-12.0)
[2025-02-14] MEDS: OPTIRAY 320 100ml IV ONE (11:30)
--- NOTE | 2025-02-14 12:02 | CT Scan Report ---
EXAM: CT Abdomen and Pelvis With Intravenous Contrast INDICATION: Abdominal pain, weakness and blood in stool. History of hemorrhoids. TECHNIQUE: Axial computed tomography images of the abdomen and pelvis with intravenous contrast. Sagittal and coronal reformatted images were created and reviewed. This CT exam was performed using one or more of the following dose reduction techniques: automated exposure control, adjustment of the mA and/or kV according to patient size, and/or use of iterative reconstruction technique. CONTRAST: 94 ml of Optiray 320 was administered intravenously. COMPARISON: 02/20/2022 and 07/07/2024 FINDINGS: Limitations: None. Lung bases: No abnormality noted. Pleural space: No visualized pleural effusion or pneumothorax. Heart: Stable small pericardial effusion, cardiomegaly and aortic valve stent graft. Mediastinum: No abnormality noted. ABDOMEN: Liver: No abnormality noted. Gallbladder and bile ducts: The gallbladder is minimally distended. No calcified stones seen. No ductal dilatation. Pancreas: Homogeneous enhancement. No mass, inflammation or ductal dilation. Spleen: No significant abnormality noted. Adrenals: No significant abnormality noted. Kidneys and ureters: Simple right renal cysts. No follow-up of these simple cysts is necessary. Stomach and bowel: Moderate amounts of stool in the colon with diffuse diverticulosis. No diverticulitis or obstruction. There is a 5.0 x 3.5 cm duodenal C-loop diverticulum similar to before. Stable prominent perianal soft tissues. PELVIS: Appendix: No findings to suggest acute appendicitis. Bladder: No filling defects to suggest mass or large stone. No inflammation. Reproductive: Stable calcified uterine fibroid. ABDOMEN and PELVIS: Intraperitoneal space: No free air. No significant fluid collection. Bones/joints: Degenerative changes noted throughout the spine. No acute osseous abnormality seen. Soft tissues: No significant abnormality noted. Vasculature: Atherosclerotic calcification of the aorta and branches. No aneurysm. Lymph nodes: No pathologically enlarged lymph nodes. IMPRESSION: 1. Moderate colonic stool and diverticulosis. No diverticulitis. 2. Soft tissue density at the anal verge consistent with the history of hemorrhoids. ACT 112: N/A Electronically signed by Freda Ramon 02-14-2025 11:57 AM
[2025-02-14] MEDS ORDERED: ONDANSETRON INJ 2 MG/ML 2 ML VIAL IV PRN (13:05)
--- NOTE | 2025-02-14 13:18 | History & Physical Report ---
Date of Service February 14, 2025 Assessment & Plan (1) Rectal bleeding: Plan Rectal Bleed in an 84 yo female Will admit to PCU Will hold xarelto for bleeding will monitor hemoglobin will consult GI. Place on clear liquid diet. No role for PPI due to this being a lower GI bleed. Knee OA: will consult orthopedist for possible knee aspiration Atrial fib: rate controlled. will hold xarelto. continue ATenolol. History of Present Illness Chief Complaint: bloody stools Primary Care Provider: Nuris Small MD Patient is an 84 yo female with PMH noted below presents to the ED due to bright red blood when she has a bowel movement. Patient takes xarelto for a fib She noticed this began on and occurs about 3 times a day. She has noticed that it is dripping and has noticed his would soak her underwear. Patient denies any dizziness, nausea, vomiting, lightheadedness, but reports being fatigued. As patient reports no improvement in her bleeding, she decided to come to the ED. Allergies Allergy/AdvReac Type Severity Reaction Status Date / Time No Known Allergies Allergy Verified 10/06/24 09:10 Home Medications Medication Instructions Recorded Confirmed Type multivitamin (Daily Multi-Vitamin 1 tab PO DAILY 01/31/18 02/14/25 History tablet) temazepam 30 mg capsule (Restoril) 30 mg PO HS 01/31/18 02/14/25 History rosuvastatin 10 mg tablet 10 mg PO HS 02/28/23 02/14/25 History atenolol 50 mg tablet 50 mg PO BID 12/05/23 02/14/25 History doxazosin 1 mg tablet 1 mg PO HS 12/05/23 02/14/25 History rivaroxaban 20 mg tablet (Xarelto) 20 mg PO HS 12/05/23 02/14/25 History isosorbide mononitrate 30 mg 30 mg PO DAILY 07/06/24 02/14/25 History tablet,extended release 24 hr losartan 100 mg tablet 100 mg PO DAILY 07/06/24 02/14/25 History gabapentin 300 mg capsule 300 mg PO BID 10/06/24 02/14/25 History clobetasol 0.05 % topical ointment 1 applic topical DAILY 02/14/25 02/14/25 History estradiol 0.01% (0.1 mg/gram) 1 g vaginal 2XWK 02/14/25 02/14/25 History vaginal cream psyllium husk 0.52 gram capsule 0.52 g PO TID 02/14/25 02/14/25 History Past Med/Surg History Problem List (Updated 02/14/25 @ 13:49 by Kapil Perdomo MD) Anticoagulated (Acute) Lower abdominal pain (Acute) Rectal bleeding (Acute) Right rotator cuff tendinitis Left trigger finger Right lower quadrant abdominal pain Achilles tendinitis, left leg Posterior tibial tendinitis Arthritis of knee, left Effusion, left knee Chondrocalcinosis Bilateral primary osteoarthritis of knee Rotator cuff syndrome of left shoulder S/P coronary artery stent placement History of aortic valve replacement TAVR procedure 04/13/2019 Lumbar stenosis with neurogenic claudication H/O transesophageal echocardiography (LELIA) for monitoring (Chronic) History of multiple strokes (Chronic) 04/29 and 05/31 History of loop recorder (Acute) 05/27/2018 H/O right heart catheterization (Chronic) not sure if right or left - thought both sides were looked at - 04/29 Lumbar facet joint syndrome (Chronic) History of coronary artery stent placement (Chronic) Hypertension (Chronic) Diabetes (Chronic) Medical History Shingles Back pain Social History Smoking Status: Never smoker Second Hand Exposure: No; Do You Dip or Chew Tobacco: No; Hx Alcohol Use: No Hx Substance Use: No Preferred Language: Lao Communication Ability: Effective Visual Impairment: No Limitations Hearing Ability: Normal Brush Machine Setter Required: No Beliefs That Will Affect Care: None marital status: Current Living Situation: Spouse current occupational status: retired Feels Safe at Home: Yes Assistive Devices: Glasses and Walker Assistive Devices Comment: Readers for glasses +2.5 Review of Systems Constitutional: no fever and no body aches Eyes: no blind spots Ear, Nose, Mouth, Throat: no ear pain Respiratory: no cough Cardiovascular: no chest pain Gastrointestinal: no abdominal pain Genitourinary: no dysuria Musculoskeletal: no back pain Integumentary: no acne Neurologic: no gait abnormality Psychiatric: no behavioral changes Endocrine: + fatigue Hematologic / Lymphatic: no easy bleeding Allergy / Immunological: no GI upset with certain foods Physical Exam Constitutional: WD/WN, vitals as above Eyes: PERRL, conjunctivae normal, anicteric sclerae ENMT: external ear and nose normal, oropharynx normal Neck: trachea midline, no thyromegaly Respiratory: normal respiratory effort, lungs clear to auscultation Cardiovascular: Rate/Rhythm: regular rate and + irregularly irregular Gastrointestinal (Abdomen): normal bowel sounds, soft, nontender, no hepatosplenomegaly Musculoskeletal: no cyanosis or clubbing, extremities motor strength 5/5 Skin: no rashes, warm and dry Neurologic: PERRL, EOMI, accommodation nl, no face palsy, no dysarthria Psychiatric: A+Ox3, euthymic affect Lymphatic: no cervical or axillary lymphadenopathy Results & Data Results & Data Vital Signs (Past 12 Hours) Vital Signs Temp Pulse Resp BP Pulse Ox O2 Del Method 02/14/25 13:00 63 17 172/111 H 94 02/14/25 12:00 61 18 166/105 H 95 02/14/25 11:00 59 L 20 147/91 H 96 02/14/25 10:48 67 22 151/97 H 95 02/14/25 10:00 66 14 134/85 94 02/14/25 09:40 72 02/14/25 09:33 95 Room Air 02/14/25 09:15 36.8 C 72 18 157/98 H 97 Room Air PG Care Time/CCT Total # of Minutes Spent Total Time Spent with Patient: Total time spent is greater than 50% in coordination of care (as documented) at patient's floor/unit and/or counseling patient: Coding Level of Care Code 60218 INT INP/OBS CARE 3/75MIN Diagnoses Rectal bleeding K62.5
--- NOTE | 2025-02-14 13:54 | Ultrasound Report ---
EXAM: US Duplex Right Lower Extremity Veins INDICATION: TECHNIQUE: Real-time duplex ultrasound scan of the right lower extremity veins integrating B-mode two-dimensional vascular structure, Doppler spectral analysis, color flow Doppler imaging and compression. COMPARISON: No relevant prior studies available. FINDINGS: Deep veins: No DVT in the visualized common femoral, femoral or popliteal veins. The veins demonstrate normal color flow, are normally compressible, with normal phasic flow and/or augmentation response. Superficial veins: No abnormality noted. No thrombus in the visualized great saphenous vein. Soft tissues: There is a 4.6 x 2.1 x 1.0 cm cm complex Nava's cyst. IMPRESSION: 1. No deep venous thrombosis of the right lower extremity. 2. There is a 4.6 x 2.1 x 1.0 cm cm complex Nava's cyst. Electronically signed by Freda Ramon 02-14-2025 13:53 PM
[2025-02-14] MEDS: GABAPENTIN 300 MG CAP PO SCH (20:15)
[2025-02-14] MEDS: ATENOLOL 50 MG TABLET PO SCH (20:17)
[2025-02-14] MEDS: ROSUVASTATIN CALCIUM 10 MG TAB PO SCH (20:17)
[2025-02-14] MEDS: LORazepam 1 MG TAB PO SCH (20:17)
[2025-02-14] MEDS: DOXAZOSIN MESYLATE 1 MG TAB PO SCH (20:17)
[2025-02-15] MEDS: SODIUM CHLORIDE 0.9% 1,000 ML IV SCH (00:32)
[2025-02-15 06:16] LABS: Hematocrit (blood only) 34.3 % (37.0-47.0); Hemoglobin 11.0 g/dl (12.0-16.0); Mean Corpuscular Hemoglobin 28.0 pg (25.0-34.0); Mean Corpuscular Volume 87.3 fL (80.0-100.0); Platelet Count 111 K/uL (130-400); RDW Standard Deviation 44.0 fL (36.4-46.3); Red Blood Count 3.93 M/uL (4.20-5.40); White Blood Count 4.58 K/ul (4.8-10.8)
[2025-02-15 06:38] LABS: Anion Gap 4.0 (3-11); Blood Urea Nitrogen 14.0 mg/dl (6-23); Calcium 9.3 mg/dl (8.6-10.3); Carbon Dioxide 31.0 mmol/L (21-32); Chloride 104.0 mmol/L (98-107); Creatinine Clr Calc Pharmacy 60.8 ml/min; Glucose 89.0 mg/dl (70-99(Fasting)); Potassium 4.2 mmol/L (3.5-5.1); Sodium 139.0 mmol/L (136-145)
[2025-02-15] MEDS: CLOBETASOL PROPIONATE 0.05% OINT 15 GM TUBE EXT SCH (09:17)
[2025-02-15] MEDS: ISOSORBIDE MONO EXTENDED REL 30 MG TABCR PO SCH (09:17)
[2025-02-15] MEDS: LOSARTAN POTASSIUM 50 MG TAB PO SCH (09:17)
--- NOTE | 2025-02-15 09:23 | XRay Report ---
XR knees AP standing BI, XR knee RT 1 or 2V routine, XR knee LT 1 or 2V routine CLINICAL HISTORY: Standing XR. Pain COMPARISON: None FINDINGS: No fracture or dislocation seen at either knee. There is mild chondrocalcinosis at both kn ees. There is mild osteoarthritis bilaterally. There are atherosclerotic calcifications. IMPRESSION: Mild osteoarthritis. ACT 112: Negative or not required by law. Electronically signed by: Brian Evans M.D. 02/15/2025 9:21 AM
--- NOTE | 2025-02-15 11:56 | Gastrointestinal Consultation ---
Date of Consultation February 15, 2025 Assessment & Plan (1) Rectal bleeding: OK to have clear liquid diet today. Begin bowel prep around 6 PM. NPO after midnight (with exception of prep). Colonoscopy on 02/16/25 if stable from a cardiac standpoint. Continue to monitor H/H. Continue to monitor for ongoing o vert GI bleeding. Supervising Physician Co-Signing Physician Notes I saw and examined this patient with our nurse practitioner and agree with her assessment and plan. Clinical picture consistent with lower GI bleed most likely etiologies are diverticular versus hemorrhoidal. Less likely neoplastic however in light of CT scan imaging of abnormality in the rectum will proceed with colonoscopy for further investigation. Hemodynamically stable. Will plan on endoscopy pending clearance from primary team regarding atrial fibrillation. History of Present Illness Reason for Consultation: GI bleed Attending Physician: Brian Gamez History of Present Illness Patient is an 84 yo female who presented to [facility] with bright red blood per rectal with clotting. She notes a history of hemorrhoidal bleeding in the past but feels this is worse than that. She notes lower abdominal cramping associated with this. She takes Metamucil daily and denies constipation or diarrhea. She notes she had a colonoscopy around age 71 and was told she did not need another. I do not have a copy of her last colonoscopy. She had a CT scan of the abdomen/pelvis in the ED that indicated diverticulosis, constipation, and soft tissue swelling consistent with hemorrhoidal disease. H/H 11/34.3. Plt count 111. BUN/Cr 14/0.86. No pertinent family history. She is on Xarelto for Atrial Fibrillation. She has been on A fib during this admission. Her rate is currently controlled at 64. Allergies Allergy/AdvReac Type Severity Reaction Status Date / Time No Known Allergies Allergy Verified 10/06/24 09:10 Home Medications Medication Instructions Recorded Confirmed Type multivitamin (Daily Multi-Vitamin 1 tab PO DAILY 01/31/18 02/14/25 History tablet) temazepam 30 mg capsule (Restoril) 30 mg PO HS 01/31/18 02/14/25 History rosuvastatin 10 mg tablet 10 mg PO HS 02/28/23 02/14/25 History atenolol 50 mg tablet 50 mg PO BID 12/05/23 02/14/25 History doxazosin 1 mg tablet 1 mg PO HS 12/05/23 02/14/25 History rivaroxaban 20 mg tablet (Xarelto) 20 mg PO HS 12/05/23 02/14/25 History isosorbide mononitrate 30 mg 30 mg PO DAILY 07/06/24 02/14/25 History tablet,extended release 24 hr losartan 100 mg tablet 100 mg PO DAILY 07/06/24 02/14/25 History gabapentin 300 mg capsule 300 mg PO BID 10/06/24 02/14/25 History clobetasol 0.05 % topical ointment 1 applic topical DAILY 02/14/25 02/14/25 History estradiol 0.01% (0.1 mg/gram) 1 g vaginal 2XWK 02/14/25 02/14/25 History vaginal cream psyllium husk 0.52 gram capsule 0.52 g PO TID 02/14/25 02/14/25 History Patient History Medical History Shingles Back pain Social History Smoking Status: Never smoker Second Hand Exposure: No; Do You Dip or Chew Tobacco: No; Hx Alcohol Use: No Hx Substance Use: No Preferred Language: Romanian Communication Ability: Effective Visual Impairment: No Limitations Hearing Ability: Normal 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 Beliefs That Will Affect Care: None marital status: Current Living Situation: Spouse current occupational status: retired Feels Safe at Home: Yes Assistive Devices: Cane and Walker Assistive Devices Comment: Readers for glasses +2.5 Review of Systems Constitutional: no weight loss Respiratory: no cough Cardiovascular: no chest pain Gastrointestinal: + abdominal pain and + blood in stools Physical Exam Constitutional: well developed Respiratory: normal respiratory effort Gastrointestinal (Abdomen): normal bowel sounds, soft, nontender, no hepatosplenomegaly Psychiatric: Orientation: alert and oriented x 3 Results & Data Vital Signs (Past 12 Hours) Vital Signs Temp Pulse Pulse Resp BP Pulse Ox O2 Del Method 02/15/25 11:23 36.6 C 64 20 127/75 96 Room Air 02/15/25 09:16 67 02/15/25 08:03 36.8 C 17 178/89 H 95 Room Air 02/15/25 08:00 55 L 02/15/25 03:54 36.9 C 79 18 142/90 H 92 Room Air 02/15/25 01:36 55 L PG Care Time/CCT Total # of Minutes Spent Total Time Spent with Patient: Total time spent is greater than 50% in coordination of care (as documented) at patient's floor/unit and/or counseling patient: Coding Level of Care Code None Diagnoses Rectal bleeding K62.5
--- NOTE | 2025-02-15 14:08 | Orthopedic Consultation ---
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 Attending Physician: Brian Ramirezbashirsaurabh Patient is a 84y/o female with bilateral knee pain. PMH including aortic valve replacement, coronary artery stent placement, stroke, HTN, diabetes. Presents to hospital with BRBPR for several days. Also well-known to orthopedic team, treats with Dr. Breen team for bilateral knee osteoarthritis and receives occasional injections, most recently 11/18/2024. Presents to the ED yesterday with multiple days of BRBPR, also notes right knee/calf pain so venous Doppler study was performed demonstrating right knee Nava's cyst, no DVT. Patient is due for bilateral knee injections and request orthopedic evaluation. Admitted to hospital medicine team for workup of rectal bleeding. Orthopedics consulted for management recommendations regarding Nava's cyst, bilateral knee pain. At time of exam patient sitting comfortably in chair, no acute distress. Endorses moderate pain of bilateral knees at rest, right slightly worse than left. States that the pain has been limiting her activity for the past few weeks. Typically injections helped her for several months however this last time only helped for approximately 2 months. Denies tingling or numbness bilateral lower extremity. No assistive devices at baseline. She was scheduled to be seen in office next week. Allergies Allergy/AdvReac Type Severity Reaction Status Date / Time No Known Allergies Allergy Verified 10/06/24 09:10 Home Medications Medication Instructions Recorded Confirmed Type multivitamin (Daily Multi-Vitamin 1 tab PO DAILY 01/31/18 02/14/25 History tablet) temazepam 30 mg capsule (Restoril) 30 mg PO HS 01/31/18 02/14/25 History rosuvastatin 10 mg tablet 10 mg PO HS 02/28/23 02/14/25 History atenolol 50 mg tablet 50 mg PO BID 12/05/23 02/14/25 History doxazosin 1 mg tablet 1 mg PO HS 12/05/23 02/14/25 History rivaroxaban 20 mg tablet (Xarelto) 20 mg PO HS 12/05/23 02/14/25 History isosorbide mononitrate 30 mg 30 mg PO DAILY 07/06/24 02/14/25 History tablet,extended release 24 hr losartan 100 mg tablet 100 mg PO DAILY 07/06/24 02/14/25 History gabapentin 300 mg capsule 300 mg PO BID 10/06/24 02/14/25 History clobetasol 0.05 % topical ointment 1 applic topical DAILY 02/14/25 02/14/25 History estradiol 0.01% (0.1 mg/gram) 1 g vaginal 2XWK 02/14/25 02/14/25 History vaginal cream psyllium husk 0.52 gram capsule 0.52 g PO TID 02/14/25 02/14/25 History Past Med/Surg History Problem List Anticoagulated (Acute) Lower abdominal pain (Acute) Rectal bleeding (Acute) Right rotator cuff tendinitis Left trigger finger Right lower quadrant abdominal pain Achilles tendinitis, left leg Posterior tibial tendinitis Arthritis of knee, left Effusion, left knee Chondrocalcinosis Bilateral primary osteoarthritis of knee Rotator cuff syndrome of left shoulder S/P coronary artery stent placement History of aortic valve replacement TAVR procedure 04/13/2019 Lumbar stenosis with neurogenic claudication H/O transesophageal echocardiography (LELIA) for monitoring (Chronic) History of multiple strokes (Chronic) 04/29 and 05/31 History of loop recorder (Acute) 05/27/2018 H/O right heart catheterization (Chronic) not sure if right or left - thought both sides were looked at - 04/29 Lumbar facet joint syndrome (Chronic) History of coronary artery stent placement (Chronic) Hypertension (Chronic) Diabetes (Chronic) Medical History Shingles Back pain Social History Smoking Status: Never smoker Second Hand Exposure: No; Do You Dip or Chew Tobacco: No; Hx Alcohol Use: No Hx Substance Use: No Preferred Language: Djiboutian Communication Ability: Effective Visual Impairment: No Limitations Hearing Ability: Normal 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 Physical Exam . * General: Alert and oriented, no acute distress * Constitutional: well-developed, well-nourished. * Respiratory: Normal respiratory effort, no distress * Gastrointestinal: No tenderness to palpation, no rigidity or guarding. * Skin: No rash or lesion. * Neurologic: Grossly normal * Musculoskeletal: Bilateral knee with no obvious deformity or overlying skin changes. Otherwise no overlying skin changes to the proximal thigh, distal thigh, lower leg, foot/ankle. Mild TTP bilateral knee joint line and patellofemoral region. Otherwise no specific tenderness of bilateral thigh, lower leg, foot/ankle. AROM knee flexion/extension without limitation, mild pain throughout arc of motion. No palpable effusion bilateral knee. Sensation intact plantar/dorsal foot. Brisk capillary refill bilaterally. Results & Data Results & Data Laboratory Results . Diagnostic Findings . Knee X-Ray 02/15/25 00:00 XR knees AP standing BI, XR knee RT 1 or 2V routine, XR knee LT 1 or 2V routine CLINICAL HISTORY: Standing XR. Pain COMPARISON: None FINDINGS: No fracture or dislocation seen at either knee. There is mild chondrocalcinosis at both knees. There is mild osteoarthritis bilaterally. There are atherosclerotic calcifications. IMPRESSION: Mild osteoarthritis. ACT 112: Negative or not required by law. Electronically signed by: Brian Evans M.D. 02/15/2025 9:21 AM Knee X-Ray 02/15/25 07:11 XR knees AP standing BI, XR knee RT 1 or 2V routine, XR knee LT 1 or 2V routine CLINICAL HISTORY: Standing XR. Pain COMPARISON: None FINDINGS: No fracture or dislocation seen at either knee. There is mild chondrocalcinosis at both knees. There is mild osteoarthritis bilaterally. There are atherosclerotic calcifications. IMPRESSION: Mild osteoarthritis. ACT 112: Negative or not required by law. Electronically signed by: Brian Evans M.D. 02/15/2025 9:21 AM Knee X-Ray 02/15/25 07:11 XR knees AP standing BI, XR knee RT 1 or 2V routine, XR knee LT 1 or 2V routine CLINICAL HISTORY: Standing XR. Pain COMPARISON: None FINDINGS: No fracture or dislocation seen at either knee. There is mild chondrocalcinosis at both knees. There is mild osteoarthritis bilaterally. There are atherosclerotic calcifications. IMPRESSION: Mild osteoarthritis. ACT 112: Negative or not required by law. Electronically signed by: Brian Evans M.D. 02/15/2025 9:21 AM PG Care Time/CCT Total # of Minutes Spent Total Time Spent with Patient: Total time spent is greater than 50% in coordination of care (as documented) at patient's floor/unit and/or counseling patient: Coding [place] [address] IN/OBS CONSULT LVL 2,35M Patient Type Established History Problem Focused Exam Problem Focused Medical Decision Making Straight Forward Diagnoses Bilateral primary osteoarthritis of knee M17.0
--- NOTE | 2025-02-15 14:12 | Procedure Note ---
Procedure Note Date of Service February 15, 2025 Procedure: Bilateral knee injection Indication: Bilateral knee osteoarthritis Procedure: After explanation of the x-ray findings and the diagnosis, prognosis and treatment options for bilateral knee osteoarthritis, I explained the purpose of cortisone injection to the patient. The patient was agreeable to proceed. We timed out to confirm procedure, site, laterality. Right knee anatomical landmarks palpated and identified. Procedure site cleaned with Betadine swab followed by alcohol swab. 4cc of 0.5% Marcaine and 1cc Triamcinolone (40mg) was injected using sterile technique. Needle was then removed and pressure applied to the procedure site followed by dressing. Following, left knee anatomical landmarks were palpated and identified. Procedure site cleaned with Betadine swab followed by alcohol swab. 4cc of 0.5% Marcaine and 1cc Triamcinolone (40mg) was injected using sterile technique. Needle was then removed and pressure applied to the procedure site followed by dressing. Patient tolerated procedure well. Plan: * Activity as tolerated * Ice to knees as needed * Follow-up in office as scheduled Coding Additional Codes Date of Service ([facility].SURGERY)
[2025-02-15] MEDS: TRIAMCINOLONE ACET 40 MG/ML VIAL IA ONE (14:47)
[2025-02-15] MEDS: BUPIVACAINE 0.5 % 5 MG/1 ML MPF 30ML VIAL INFIL ONE (14:47)
--- NOTE | 2025-02-15 14:52 | Electrocardiogram Report ---
Test Reason : Blood Pressure : */* mmHG Vent. Rate : 71 BPM Atrial Rate : * BPM P-R Int : * ms QRS Dur : 130 ms QT Int : 434 ms P-R-T Axes : * 0 115 degrees QTcB Int : 471 ms Atrial fibrillation Left bundle branch block Abnormal ECG When compared with ECG of 07-Jul-2024 11:02, T wave inversion now evident in Lateral leads Confirmed by Gonzales Crouch ([id number]) on 02/15/2025 2:52:15 PM Referred By: NO PCP Confirmed By: Gonzales Crouch
[2025-02-15] MEDS: POLYETHYLENE (MIRALAX) 17 GM PACK PO ONE ×2 (15:17→17:51)
--- NOTE | 2025-02-15 23:30 | Hospitalist Progress Note ---
Date of Service February 15, 2025 Assessment & Plan (1) Rectal bleeding: Plan Rectal Bleed in an 84 yo female Will admit to PCU Will hold xarelto for bleeding will consult GI: plan for colonscopy on 02/16 No role for PPI due to this being a lower GI bleed. Knee OA: appreciate input from ortho. Atrial fib: rate controlled. will hold xarelto. continue ATenolol. Admission and Anticipated Discharge Date Admission Date: February 14, 2025 Subjective Patient reports no new symptoms. Physical Exam Constitutional: WD/WN, vitals as above Eyes: PERRL, conjunctivae normal, anicteric sclerae ENMT: external ear and nose normal, oropharynx normal Neck: trachea midline, no thyromegaly Respiratory: normal respiratory effort, lungs clear to auscultation Cardiovascular: Rate/Rhythm: regular rate and + irregularly irregular Gastrointestinal (Abdomen): normal bowel sounds, soft, nontender, no hepatosplenomegaly Musculoskeletal: no cyanosis or clubbing, extremities motor strength 5/5 Skin: no rashes, warm and dry Neurologic: PERRL, EOMI, accommodation nl, no face palsy, no dysarthria Psychiatric: A+Ox3, euthymic affect Lymphatic: no cervical or axillary lymphadenopathy Results & Data Results & Data Vital Signs (Past 12 Hours) Vital Signs Temp Pulse Resp BP Pulse Ox O2 Del Method 02/15/25 23:27 36.5 C 82 18 169/107 H 95 Room Air 02/15/25 20:23 36.8 C 83 18 152/85 H 94 Room Air 02/15/25 16:32 36.7 C 68 18 166/91 H 96 Room Air PG Care Time/CCT Total # of Minutes Spent Total Time Spent with Patient: Total time spent is greater than 50% in coordination of care (as documented) at patient's floor/unit and/or counseling patient: Coding Level of Care Code 08361 SUB INP/OBS CARE 3/50MIN Diagnoses Rectal bleeding K62.5
[2025-02-16 06:31] LABS: Hematocrit (blood only) 38.9 % (37.0-47.0); Hemoglobin 12.6 g/dl (12.0-16.0); Mean Corpuscular Hemoglobin 28.0 pg (25.0-34.0); Mean Corpuscular Volume 86.4 fL (80.0-100.0); Platelet Count 126 K/uL (130-400); RDW Standard Deviation 42.6 fL (36.4-46.3); Red Blood Count 4.50 M/uL (4.20-5.40); White Blood Count 3.56 K/ul (4.8-10.8)
[2025-02-16 07:05] LABS: Anion Gap 10.0 (3-11); Blood Urea Nitrogen 15.0 mg/dl (6-23); Calcium 9.8 mg/dl (8.6-10.3); Carbon Dioxide 26.0 mmol/L (21-32); Chloride 102.0 mmol/L (98-107); Creatinine Clr Calc Pharmacy 62.2 ml/min; Glucose 141.0 mg/dl (70-99(Fasting)); Potassium 3.9 mmol/L (3.5-5.1); Sodium 138.0 mmol/L (136-145)
--- NOTE | 2025-02-16 09:44 | History & Physical Bridge Note ---
Date of Service February 16, 2025 History & Physical Bridge Note I have examined the patient, reviewed the History & Physical and in the interval since the performance of the History & Physical I have noted the following changes of clinical significance: no changes noted. Patient did complete her bowel prep. She had flecks of brown in her last bowel movement, but it was mostly liquid yellow. She notes some abdominal pain when prepping, but no bleeding. Her HR was bumped to 95 this AM before meds. Her BP was 178/102 before meds. Keep NPO for colonoscopy today as long as her BP and HR are controlled. Supervising Physician Co-Signing Physician Notes I saw and examined this patient with our nurse practitioner and agree with her assessment and plan. Hemodynamically stable no further significant bleeding. Will proceed with colonoscopy today.
--- NOTE | 2025-02-16 10:17 | Anesthesiology Consultation ---
Date of Service February 16, 2025 Assessment & Plan Chart Review Chart Review: Acceptable Risk for Surgery and Patient NOT seen in Pre Admission Testing Consults Requested none ASA ASA3 Proposed Anesthesia Anesthesia Type: General History Surgery Operation Date: 02/16/25 17:10 Proposed Procedures p Colonoscopy Dr. Jcaob James MD Height/Weight Height: 5 ft 7 in Weight: 101.8 kg Allergies Allergy/AdvReac Type Severity Reaction Status Date / Time No Known Allergies Allergy Verified 10/06/24 09:10 Medications Home Medications Medication Instructions Recorded Confirmed Last Taken multivitamin (Daily Multi-Vitamin 1 tab PO DAILY 01/31/18 02/14/25 02/14/25 tablet) temazepam 30 mg capsule (Restoril) 30 mg PO HS 01/31/18 02/14/25 02/13/25 rosuvastatin 10 mg tablet 10 mg PO HS 02/28/23 02/14/25 02/13/25 atenolol 50 mg tablet 50 mg PO BID 12/05/23 02/14/25 02/14/25 doxazosin 1 mg tablet 1 mg PO HS 12/05/23 02/14/25 02/13/25 rivaroxaban 20 mg tablet (Xarelto) 20 mg PO HS 12/05/23 02/14/25 02/13/25 isosorbide mononitrate 30 mg 30 mg PO DAILY 07/06/24 02/14/25 02/14/25 tablet,extended release 24 hr losartan 100 mg tablet 100 mg PO DAILY 07/06/24 02/14/25 02/14/25 gabapentin 300 mg capsule 300 mg PO BID 10/06/24 02/14/25 02/14/25 clobetasol 0.05 % topical ointment 1 applic topical DAILY 02/14/25 02/14/25 Unknown estradiol 0.01% (0.1 mg/gram) 1 g vaginal 2XWK 02/14/25 02/14/25 Unknown vaginal cream psyllium husk 0.52 gram capsule 0.52 g PO TID 02/14/25 02/14/25 02/14/25 Active Medications Generic Name Dose Route Start Last Admin Trade Name Freq PRN Reason Stop Dose Admin Atenolol 50 mg 02/14/25 21:00 02/16/25 08:09 Atenolol 50 Mg Tablet PO 03/16/25 20:59 50 mg BID [place] Administration Clobetasol Propionate 1 appln 02/15/25 09:00 02/15/25 09:17 Clobetasol Propionate 0.05% Oint 15 Gm Tube EXT 03/17/25 08:59 1 appln DAILY [place] Administration Doxazosin Mesylate 1 mg 02/14/25 21:00 02/15/25 21:37 Doxazosin Mesylate 1 Mg Tab PO 03/16/25 20:59 1 mg HS [place] Administration Gabapentin 300 mg 02/14/25 21:00 02/16/25 08:10 Gabapentin 300 Mg Cap PO 03/16/25 20:59 300 mg BID [place] Administration Sodium Chloride 1,000 mls @ 80 mls/hr 02/14/25 23:30 02/15/25 15:31 Nss IV 02/17/25 23:29 80 mls/hr .[id number] [place] Infusion Isosorbide Mononitrate 30 mg 02/15/25 09:00 02/16/25 08:09 Isosorbide [place]ney Extended Rel 30 Mg Tabcr PO 03/17/25 08:59 30 mg DAILY [place] Administration Lorazepam 2 mg 02/14/25 21:00 02/16/25 03:50 Lorazepam 1 Mg Tab PO 03/16/25 20:59 Not Given HS [place] Losartan Potassium 100 mg 02/15/25 09:00 02/16/25 08:09 Losartan Potassium 50 Mg Tab PO 03/17/25 08:59 100 mg DAILY [place] Administration Miscellaneous 1 each 02/14/25 16:00 02/15/25 23:33 Order Awaiting Action Estradiol 0.01 % (0.1 Mg/Gram) Cream) N/A 03/16/25 15:59 Not Given QS [place] Rosuvastatin Calcium 10 mg 02/14/25 21:00 02/15/25 21:38 Rosuvastatin Calcium 10 Mg Tab PO 03/16/25 20:59 10 mg HS [place] Administration Past Medical History Medical History Shingles Back pain Exercise / Class Metabolic Activity III < 4 Walking/Shop/Light housework Past Anesthesia History No Hx of Anesthesia Complications and No Family Hx of Anesthesia Complications History of PONV No Hx of PONV Social History Smoking Status: Never smoker Do You Dip or Chew Tobacco: No Hx Alcohol Use: No Hx Substance Use: No substance use type: does not use Review of Systems Respiratory: no problem reported Cardiovascular: no problem reported Gastrointestinal: + blood in stools and + melena Physical Exam Vital Signs Last Vital Signs Temp 36.5 C 02/16/25 07:51 Pulse 95 H 02/16/25 07:51 Resp 18 02/16/25 07:51 BP 178/102 H 02/16/25 07:51 Pulse Ox 96 02/16/25 07:51 O2 Del Method Room Air 02/16/25 07:51 Constitutional no acute distress and not mechanically ventilated ENMT Mouth: no TMJ abnormality Mallampati Class: III Neck normal visual inspection Respiratory normal respiratory effort Auscultation: lungs clear to auscultation bilaterally Cardiovascular Rate/Rhythm: regular rate Neurologic moves all extremities Psychiatric Orientation: alert and oriented x 3 Testing Laboratory Results 02/16/25 05:53 02/16/25 05:53 PT 15.6 Seconds (9.0-12.0) H 02/14/25 09:55 INR 1.5 (0.9-1.1) H 02/14/25 09:55 APTT 38 Seconds (21-31) H 02/14/25 09:55 Blood Type O Negative 02/14/25 09:55 Antibody Screen NEGATIVE 02/14/25 09:55 02/16/25 05:59 POC Glucose 138 H
--- NOTE | 2025-02-16 10:19 | Anesthesiology Consultation ---
Date of Service February 16, 2025 Assessment & Plan Consults Requested medical & cardiac Pulmonary ASA ASA3 Proposed Anesthesia Anesthesia Type: MAC Risk / Benefits Reviewed With: PT / POA / Parent / Guardian, Accepts Plan and Informed Consent Obtained History Surgery Operation Date: 02/16/25 17:10 Proposed Procedures p Colonoscopy Dr. Jacob James MD Height/Weight Height: 5 ft 7 in Weight: 101.8 kg Allergies Allergy/AdvReac Type Severity Reaction Status Date / Time No Known Allergies Allergy Verified 10/06/24 09:10 Medications Home Medications Medication Instructions Recorded Confirmed Last Taken multivitamin (Daily Multi-Vitamin 1 tab PO DAILY 01/31/18 02/14/25 02/14/25 tablet) temazepam 30 mg capsule (Restoril) 30 mg PO HS 01/31/18 02/14/25 02/13/25 rosuvastatin 10 mg tablet 10 mg PO HS 02/28/23 02/14/25 02/13/25 atenolol 50 mg tablet 50 mg PO BID 12/05/23 02/14/25 02/14/25 doxazosin 1 mg tablet 1 mg PO HS 12/05/23 02/14/25 02/13/25 rivaroxaban 20 mg tablet (Xarelto) 20 mg PO HS 12/05/23 02/14/25 02/13/25 isosorbide mononitrate 30 mg 30 mg PO DAILY 07/06/24 02/14/25 02/14/25 tablet,extended release 24 hr losartan 100 mg tablet 100 mg PO DAILY 07/06/24 02/14/25 02/14/25 gabapentin 300 mg capsule 300 mg PO BID 10/06/24 02/14/25 02/14/25 clobetasol 0.05 % topical ointment 1 applic topical DAILY 02/14/25 02/14/25 Unknown estradiol 0.01% (0.1 mg/gram) 1 g vaginal 2XWK 02/14/25 02/14/25 Unknown vaginal cream psyllium husk 0.52 gram capsule 0.52 g PO TID 02/14/25 02/14/25 02/14/25 Active Medications Generic Name Dose Route Start Last Admin Trade Name Freq PRN Reason Stop Dose Admin Atenolol 50 mg 02/14/25 21:00 02/16/25 08:09 Atenolol 50 Mg Tablet PO 03/16/25 20:59 50 mg BID [place] Administration Clobetasol Propionate 1 appln 02/15/25 09:00 02/15/25 09:17 Clobetasol Propionate 0.05% Oint 15 Gm Tube EXT 03/17/25 08:59 1 appln DAILY [place] Administration Doxazosin Mesylate 1 mg 02/14/25 21:00 02/15/25 21:37 Doxazosin Mesylate 1 Mg Tab PO 03/16/25 20:59 1 mg HS [place] Administration Gabapentin 300 mg 02/14/25 21:00 02/16/25 08:10 Gabapentin 300 Mg Cap PO 03/16/25 20:59 300 mg BID [place] Administration Sodium Chloride 1,000 mls @ 80 mls/hr 02/14/25 23:30 02/15/25 15:31 Nss IV 02/17/25 23:29 80 mls/hr .[id number] [place] Infusion Isosorbide Mononitrate 30 mg 02/15/25 09:00 02/16/25 08:09 Isosorbide Labette Extended Rel 30 Mg Tabcr PO 03/17/25 08:59 30 mg DAILY [place] Administration Lorazepam 2 mg 02/14/25 21:00 02/16/25 03:50 Lorazepam 1 Mg Tab PO 03/16/25 20:59 Not Given HS [place] Losartan Potassium 100 mg 02/15/25 09:00 02/16/25 08:09 Losartan Potassium 50 Mg Tab PO 03/17/25 08:59 100 mg DAILY [place] Administration Miscellaneous 1 each 02/14/25 16:00 02/15/25 23:33 Order Awaiting Action Estradiol 0.01 % (0.1 Mg/Gram) Cream) N/A 03/16/25 15:59 Not Given QS [place] Rosuvastatin Calcium 10 mg 02/14/25 21:00 02/15/25 21:38 Rosuvastatin Calcium 10 Mg Tab PO 03/16/25 20:59 10 mg HS [place] Administration Past Medical History Medical History Shingles Back pain Social History Smoking Status: Never smoker Do You Dip or Chew Tobacco: No Hx Alcohol Use: No Hx Substance Use: No substance use type: does not use Review of Systems Respiratory: no problem reported Cardiovascular: no problem reported Gastrointestinal: + blood in stools and + melena Physical Exam Vital Signs Last Vital Signs Temp 36.5 C 02/16/25 07:51 Pulse 95 H 02/16/25 07:51 Resp 18 02/16/25 07:51 BP 178/102 H 02/16/25 07:51 Pulse Ox 96 02/16/25 07:51 O2 Del Method Room Air 02/16/25 07:51 Constitutional no acute distress ENMT Mouth: no TMJ abnormality Mallampati Class: III Neck normal visual inspection Respiratory normal respiratory effort, lungs clear to auscultation Cardiovascular Rate/Rhythm: regular rate Musculoskeletal Spine: normal cervical ROM Neurologic moves all extremities Psychiatric Orientation: alert and oriented x 3 Testing Laboratory Results 02/16/25 05:53 02/16/25 05:53 PT 15.6 Seconds (9.0-12.0) H 02/14/25 09:55 INR 1.5 (0.9-1.1) H 02/14/25 09:55 APTT 38 Seconds (21-31) H 02/14/25 09:55 Blood Type O Negative 02/14/25 09:55 Antibody Screen NEGATIVE 02/14/25 09:55 02/16/25 05:59 POC Glucose 138 H
[2025-02-16 10:20] VITALS: RESP 16; TEMP 97.3
[2025-02-16] MEDS ORDERED: LIDOCAINE 2% 2 ML VIAL/AMP(20MG/ML) INFIL ONE (10:55)
[2025-02-16] MEDS ORDERED: PROPOFOL IV EMULSION 10 MG/ML 20 ML VIAL IV ONE (10:55)
--- NOTE | 2025-02-16 11:34 | GI REPORT ---
[facility] Patient: BRANDEN YADAV : 1940 Sex at : Female Age: 84 Years Procedure: Colonoscopy Date: 02/16/2025 Attending Physician: Ramon James MD Referring MD: Brian Gamez M.d. Indications: - Evaluation of unexplained GI bleeding presenting with Hematochezia Medications: - Monitored Anesthesia Care Complications: - No immediate complications. Procedure: - Prior to the procedure, a History and Physical was performed, and patient medications and allergies were reviewed. The patient's tolerance of previous anesthesia was also reviewed. The risks and benefits of the procedure and the sedation options and risks were discussed with the patient. All questions were answered, and informed consent was obtained. [Anticoagulant Agents] [Days Prior to Procedure]. [ASA Grade]. After reviewing the risks and benefits, the patient was deemed in satisfactory condition to undergo the procedure. - The adult colonoscope was introduced through the anus and advanced to the terminal ileum, with identification of the appendiceal orifice and ileocecal valve. - The colonoscopy was performed without difficulty. - The patient tolerated the procedure well. - The quality of the bowel preparation was [Prep Quality]. - [Anatomical Structures] photographed. Findings: - The perianal and digital rectal examinations were normal. - A 20 mm polyp was found in the sigmoid colon. The polyp was pedunculated. The polyp was removed with a hot snare. Resection and retrieval were complete. To prevent bleeding after the polypectomy, two hemostatic clips were successfully placed. [Bleeding present]. - A diminutive (1-3 mm) polyp was found in the ascending colon. The polyp was sessile. [Method]. [Resection & Retrieval]. The polyp was removed with a cold biopsy forceps. Resection and retrieval were complete. - Two sessile polyps were found in the cecum, rectum and ascending colon. The polyps were 10 to 15 mm in size. These polyps were removed with a hot snare. Resection and retrieval were complete. - Multiple [Opening] diverticula were found in the sigmoid colon and descending colon. - The terminal ileum appeared normal. - No other significant abnormalities were identified in a careful examination of the remainder of the colon. Impression: - One 20 mm polyp in the sigmoid colon, removed with a hot snare. Resected and retrieved. Clips were placed. - One diminutive (1-3 mm) polyp in the ascending colon, removed with a cold biopsy forceps. Resected and retrieved. - Two 10 to 15 mm polyps in the cecum, in the rectum and in the ascending colon, removed with a hot snare. Resected and retrieved. - Diverticulosis in the sigmoid colon and in the descending colon. - The examined portion of the ileum was normal. Recommendation: - Await pathology results. - Resume previous diet. - Repeat colonoscopy in 3 years for surveillance of multiple adenomas. - Patient has a contact number available for emergencies. The signs and symptoms of potential delayed complications were discussed with the patient. Return to normal activities tomorrow. Written discharge instructions were provided to the patient. Procedure Code(s): - 99884, Colonoscopy, flexible; with removal of tumor(s), polyp(s), or other lesion(s) by snare technique - 05811-21, Colonoscopy, flexible; with biopsy, single or multiple Diagnosis Code(s): - K92.1, Melena (includes Hematochezia) - D12.5, Benign neoplasm of sigmoid colon - D12.2, Benign neoplasm of ascending colon - D12.0, Benign neoplasm of cecum - D12.8, Benign neoplasm of rectum - K57.30, Diverticulosis of large intestine without perforation or abscess without bleeding CPT(R) - 2023 copyright [employer]. All Rights Reserved. The CPT codes, CCI edits and ICD codes generated are intended as suggestions and were generated based on input data. These codes are preliminary and upon creative assistant review may be revised to meet current compliance and payer requirements. The provider is responsible for the final determination of appropriate codes, and modifiers. Ramon James MD This document has been electronically signed. Note Initiated:02/16/2025 Note Completed:02/16/2025 11:33 AM \\[id number]
--- NOTE | 2025-02-16 11:51 | Anesthesiology Progress Note ---
Date of Service February 16, 2025 Anesthesia Post Procedure Vital Signs Vital Signs: Temp Pulse Pulse Resp BP Pulse Ox O2 Del Method 02/16/25 11:45 64 16 134/75 94 Room Air 02/16/25 11:30 60 16 116/66 94 Room Air 02/16/25 10:18 36.3 C L 68 16 155/79 H 96 Room Air 02/16/25 07:51 36.5 C 95 H 18 178/102 H 96 Room Air 02/16/25 03:37 74 18 162/105 H 96 Room Air 02/15/25 23:27 36.5 C 82 18 169/107 H 95 Room Air 02/15/25 23:00 76 02/15/25 20:23 36.8 C 83 18 152/85 H 94 Room Air 02/15/25 16:32 36.7 C 68 18 166/91 H 96 Room Air Pain Intensity Abdomen: Pain Intensity: 8 Transfer of Care Handoff Completed per policy Notes Mental Status: alert / awake / arousable Patient Amnestic to Procedure: Yes Nausea / Vomiting: adequately controlled Pain: adequately controlled Airway Patency, RR, SpO2: stable & adequate BP & HR: stable & adequate Hydration State: stable & adequate Anesthetic Complications: no major complications apparent
[2025-02-16 12:01] VITALS: BP 139/89; O2SAT 96
--- NOTE | 2025-02-16 14:28 | Discharge Summary ---
Discharge Summary Date of Service February 16, 2025 Principal Dx & Hospital Course #1 = Principal Diagnosis (1) Rectal bleeding: Plan Rectal Bleed in an 84 yo female Will admit to PCU Will hold xarelto for bleeding will consult GI: plan for colonscopy on 02/16 No role for PPI due to this being a lower GI bleed. Knee OA: appreciate input from ortho. Atrial fib: rate controlled. will hold xarelto. continue ATenolol. Admission HPI Per Admitting Provider Patient is an 84 yo female with PMH noted below presents to the ED due to bright red blood when she has a bowel movement. Patient takes xarelto for a fib She noticed this began on and occurs about 3 times a day. She has noticed that it is dripping and has noticed his would soak her underwear. Patient denies any dizziness, nausea, vomiting, lightheadedness, but reports being fatigued. As patient reports no improvement in her bleeding, she decided to come to the ED. Discharge Exam Constitutional WD/WN, vitals as above Eyes PERRL, conjunctivae normal, anicteric sclerae ENMT external ear and nose normal, oropharynx normal Neck trachea midline, no thyromegaly Respiratory normal respiratory effort, lungs clear to auscultation Cardiovascular Rate/Rhythm: regular rate and + irregularly irregular Gastrointestinal (Abdomen) normal bowel sounds, soft, nontender, no hepatosplenomegaly Musculoskeletal no cyanosis or clubbing, extremities motor strength 5/5 Skin no rashes, warm and dry Neurologic PERRL, EOMI, accommodation nl, no face palsy, no dysarthria Psychiatric A+Ox3, euthymic affect Lymphatic no cervical or axillary lymphadenopathy Discharge Plan Discharge Items Patient Disposition: Home - Self-Care Reason For Visit: LOWER GI BLEED Discharge Diagnosis: Lower GI bleed Condition on Discharge: Fair Activity: Resume your previous activity Non-emergency contact: Primary Care Provider Call non-emergency contact if: you have any medication questions Follow-up/Referrals: Nuris Small MD [Primary Care Provider] - (Please call the office to schedule a hospital follow up appointment.) Diet: Heart Healthy Addtl Attending Provider Instructions: Recommend followup with PCP in 1 week. Recommend holding xarelto until followup. Pending Studies at Discharge: No Stand-Alone Forms: My [facility], Smoking Cessation Medications and DC Order Prescriptions: New ferrous sulfate 325 mg (65 mg iron) tablet 325 mg PO MOWEFR Qty: 14 0RF Continued gabapentin 300 mg capsule 300 mg PO BID multivitamin [Daily Multi-Vitamin] tablet 1 tab PO DAILY Rx Instructions: Unable to verify OTC meds at this date/time. temazepam [Restoril] 30 mg capsule 30 mg PO HS rosuvastatin 10 mg tablet 10 mg PO HS atenolol 50 mg tablet 50 mg PO BID doxazosin 1 mg tablet 1 mg PO HS isosorbide mononitrate 30 mg tablet extended release 24 hr 30 mg PO DAILY losartan 100 mg tablet 100 mg PO DAILY clobetasol 0.05 % ointment 1 applic TOPICAL DAILY estradiol 0.01 % (0.1 mg/gram) cream 1 g VAGINAL 2XWK psyllium husk [Metamucil] 0.52 gram Capsule 0.52 g PO TID Held Xarelto 20 mg tablet 20 mg PO HS Hold Instructions: Provider's Order Discharge Orders: Discharge Order (Routine); Ordered 02/16/25 Ordered By: Brian Gamez Admission Data Admit Date/Time: 02/14/25 13:05 Attending Provider: Brian Gamez Admit Provider: Brian Gamez Primary Care Provider: Nuris Small Other Providers: Gloria Owens; Yanet Contreras; Kristian Murray; Sepideh Patel; Maggy Garcia; Judy Aggarwal; Maris Solano; Chaka Palencia; Franca Mejia; Rambo Bird; Kee Bolton S; Erin Granados; Ioana Alvarez; Bri Werner; Zuly Hein; Lynnette Junior; Shai Mary; Peña Onofre; Christy Acevedo; Zander Thurman Jr; Osman Castano; Home Albarran; Joe Landa; Abner Manzanares; Hannah Polanco; Ramon James I; Nini Delgado; Ravindra Gallego; Erick Kahn; Nnamdi Hernández; Dejon Domingo; Ave Steinberg; Brian Gamez; Loy Shook; Rowena Dow; Alfonso Shaffer; Tiffanie Prakash; Ana Bowen; Dylon Dennis; Crista Craig; Dayton Moses; Neda Garcia; Quincy Prajapati; Jeannie Ayala; Arnaud Breen; Ela Montes; Christy Johnson; Shawn Feliciano; Pavan Núñez; Aicha Toribio; Bhumi Conteh; Kim Aguilar; Patricia Sue; Dee Dee Viera; Maggy Pandey; Loy Monte; Pavan Ayala; Niki Welch; Tarsha Araujo Other Interventions: Discharge Summary Assessment (RN) Last Done: 02/16/25 11:55 Hospital Stay Data Consultations 02/14/25 12:38 ED Decision to Admit Stat 02/14/25 13:05 Consult Gastroenterology Routine 02/14/25 13:30 ED Decision to Admit Stat 02/14/25 23:24 Consult Orthopedic Surgery Routine Procedures Performed Operation Date: 02/16/25 17:10 Actual Procedures p Colonoscopy Polypectomy - Ramon James MD Diagnostic Imagining Performed 02/14/25 09:32 CT abd pelvis IV con only Stat 02/14/25 13:00 US venous doppler LE RT Stat Pending Results Patient Have Any Pending Studies at Discharge: No Discharge Instructions Given to Patient (Per Discharging Provider) Recommend followup with PCP in 1 week. Recommend holding xarelto until followup. Coding Diagnoses Rectal bleeding K62.5
[2025-02-16 15:11] VITALS: PULSE 80
== END 2025-02-16 15:23 | disposition home or self-care (01) | DRG 379 ==
LOC: ED 09:09 → 2E 13:05